=== PATIENT | male | born 1960 | race African-American/Black ===

== ENCOUNTER 2019-02-11 23:25 | Inpatient (IN) ==
[2019-02-11 23:17] LABS: BASO# 0.01 X1000 (0.0-0.2); BASO% 0.1 % (0.0-0.8); HEMATOCRIT 47.5 % (42.0-52.0); HEMOGLOBIN 16.6 g/dL (14.0-18.0); IMM GRAN# 0.18 X1000 (0.0-0.04); IMM GRAN% 1.5 % (0.0-0.5); LYMPH# 1.16 X1000 (1.2-3.4); LYMPH% 9.5 % (20.5-51.1); MCHC 34.9 g/dL (33-37); MCV 82.9 FL (81-99); MONO# 1.77 X1000 (0.11-0.59); MONO% 14.4 % (1.7-9.3); MPV 12.5 FL (7.4-10.4); NEUT# 9.15 X1000 (1.4-6.5); NEUT% 74.5 % (42.2-75.2); PLT 260 X1000 (130-400); RBC 5.73 XMIL (4.7-6.1); RDW 12.8 % (11.5-14.5); WBC 12.27 X1000 (4.8-10.8)
--- NOTE | 2019-02-11 23:23 | PROVIDER DOCUMENTATION ---
HPI-General Adult - General Chief Complaint: Altered Mental Status Stated Complaint: fall Time Seen by Provider: 02/11/19 23:45 Source: EMS Allergies/Adverse Reactions: Patient Allergies Allergy/AdvReac Type Severity Reaction Status Date / Time No Known Allergies Allergy Verified 01/02/13 11:00 Home Medications: Home Medication List Medication Instructions Recorded Confirmed Last Taken Type Sulfamethoxazole/Trimethoprim 1 each PO BID #20 tablet 01/02/13 Unknown Rx [Bactrim Ds Tablet] - History of Present Illness -Gen Adult Nature of Presenting Problems: Patient is a 58 year old black male, found on the floor in his bathroom tonight with altered mentation without evidence of injury with rapid respirations,low blood pressure, and fruity odor. Review of Systems - Adult - REVIEW OF SYSTEMS - ADULT ROS:: unobtainable per condition Constitutional: reports: see HPI Past History - Adult - PAST MEDICAL HISTORY-ADULT Review of Records: reports: Old Records Reviewed, Nursing Assessment Review, Medications Reviewed, Social history reviewed & non-contributory. Physical Exam-General - PHYSICAL EXAM-ADULT Initial Vital Signs Reviewed: Yes - CONSTITUTIONAL General Appearance: lethargic, other (slow mentation, follows commands slowly, GCS=13, dry mucous membranes with rapid respirations) - EYES Eyes: other (clear) - HEAD, EARS, NOSE, MOUTH & THROAT HENMT: other (dry membranes) - NECK Neck: supple - RESPIRATORY Respiratory: lungs clear - CARDIOVASCULAR Cardiovascular: regular rate, rhythm - GASTROINTESTINAL (ABDOMEN) Abdominal Exam: normal bowel sounds, non tender, soft - MUSCULOSKELETAL Back Exam: normal inspection, no CVA tenderness Extremity: non-tender, other (no deformities) Peripheral Pulses: radial (R): 1+, radial (L): 1+ - SKIN Integumentary: warm/dry, other (poor skin turgor). negative: normal turgor - NEUROLOGIC Neurologic: other (nonfocal, uncooperative to exam) Progress - PLAN OF CARE/RESULTS Progress/Plan/Lab Results: Laboratory Results - last 24 hr 02/11/19 02/11/19 23:09 23:10 WBC 12.27 H RBC 5.73 Hgb 16.6 Hct 47.5 MCV 82.9 MCH 29.0 MCHC 34.9 RDW Std Deviation 12.8 Plt Count 260 MPV 12.5 H Immature Gran % (Auto) 1.5 H Neut % (Auto) 74.5 Lymph % (Auto) 9.5 L [place] % (Auto) 14.4 H Eos % (Auto) 0.0 Baso % (Auto) 0.1 Immature Gran # (Auto) 0.18 H Neut # (Auto) 9.15 H Lymph # (Auto) 1.16 L [place] # (Auto) 1.77 H Eos # (Auto) 0.00 Baso # (Auto) 0.01 POC Glucose 500 H Orders Category Date Time Status Core Temperature ORDERED Care 02/11/19 23:04 Active FSBS/Accucheck Result NOW Care 02/11/19 23:05 Active Vogel Cath Insertion ORDERED Care 02/11/19 23:02 Active Vogel Cath Insertion ORDERED Care 02/11/19 23:06 Active IV Insertion ORDERED Care 02/11/19 23:06 Active Intake and Output-Strict ORDERED Care 02/11/19 23:02 Active Intake and Output-Strict ORDERED Care 02/11/19 23:06 Active Notify MD/PA/RUBBER CHEMIST for exam NOW Care 02/11/19 23:02 Active Notify MD/PA/RUBBER CHEMIST for exam NOW Care 02/11/19 23:06 Active Repeat Vital Signs .Blood Pressure Care 02/11/19 23:02 Active Repeat Vital Signs .Blood Pressure Care 02/11/19 23:06 Active Repeat Vital Signs .Heart Rate Care 02/11/19 23:02 Active Repeat Vital Signs .Heart Rate Care 02/11/19 23:06 Active Repeat Vital Signs .Oxygen Saturation Care 02/11/19 23:02 Active Repeat Vital Signs .Oxygen Saturation Care 02/11/19 23:06 Active Repeat Vital Signs .Respiratory Rate Care 02/11/19 23:02 Active Repeat Vital Signs .Respiratory Rate Care 02/11/19 23:06 Active Repeat Vital Signs .Temp Care 02/11/19 23:02 Active Repeat Vital Signs .Temp Care 02/11/19 23:06 Active CHEST-PORTABLE [RAD] Stat Exams 02/11/19 23:04 Ordered ABG [RESP] Routine Lab 02/11/19 23:03 Ordered BLOOD CULTURE [BLDCUL] Stat Lab 02/11/19 23:04 Uncollected CBC WITH ELECTRONIC DIFF [HEME] Stat Lab 02/11/19 23:09 Completed CMP [COMPREHENSIVE METABOLIC PANEL] [CHEM] Stat Lab 02/11/19 23:03 Uncollected LACTATE, PLASMA [CHEM] Timed Lab 02/11/19 23:02 Uncollected LACTATE, PLASMA [CHEM] Timed Lab 02/11/19 23:06 Uncollected PROTIME WITH INR [COAG] Stat Lab 02/11/19 23:05 Uncollected PTT [COAG] Stat Lab 02/11/19 23:[address] W/POSS RFLX CULT [URINALYSIS] Stat Lab 02/11/19 23:03 Uncollected URINE DRUG SCREEN PL Stat Lab 02/11/19 23:05 Uncollected 0.9% Sodium Chloride Inj [Ns] 1,000 ml Med 02/11/19 23:02 Discontinued IV As Directed mls/hr 0.9% Sodium Chloride Inj [Ns] 1,000 ml Med 02/11/19 23:06 Discontinued IV As Directed mls/hr 0.9% Sodium Chloride Inj [Ns] 2,000 ml Med 02/11/19 23:05 Discontinued .ROUTE As directed 0.9% Sodium Chloride Inj [Ns] 500 ml Med 02/11/19 23:02 Active IV 999 mls/hr 0.9% Sodium Chloride Inj [Ns] 500 ml Med 02/11/19 23:06 Active IV 999 mls/hr Dextrose 5%-0.45% NaCl Inj [D5 1/2 Ns] 250 ml Med 02/11/19 23:15 Active Norepinephrine [Levophed] 8 mg IV As Directed mls/hr Dextrose 5%-0.45% NaCl Inj [D5 1/2 Ns] 250 ml Med 02/11/19 23:15 Discontinued Norepinephrine [Levophed] 8 mg IV As Directed mls/hr Dextrose 5%-Water Inj [D5w] 250 ml Med 02/11/19 23:15 Stop Req Epinephrine 8 mg IV As Directed mls/hr Piperacillin/Tazobactam [Zosyn] 3.375 gm Med 02/11/19 23:03 Active 0.9% Sodium Chloride Inj [Ns] 50 ml IV NOW Vancomycin 1 gm/Ns Med 02/11/19 23:02 Active 1 gm in 250 ml IV NOW Result Diagrams: 02/11/19 23:09 02/11/19 23:09 - CONSULTS/PCP/HOSPITALIST Notification #1 *Consult/PCP/Hospitalist*: Dr. Burks hospitalist Time Discussed: 00:45 Reason/Comments: admit to [facility], we have no ICU beds Consult Disposition: Admit #2 Consult: Dr. Neal hospitalist at [facility] Time Discussed: 00:50 Consult Disposition: Admit Departure - Departure Date of Disposition Decision: 02/12/19 Time of Disposition Decision: 00:55 DIAGNOSIS: Diabetic ketoacidosis Qualifiers: Diabetes mellitus type: other specified (including FRANCISCO) Diabetes mellitus complication detail: without coma Qualified Code(s): E13.10 - Other specified diabetes mellitus with ketoacidosis without coma Hypotension Qualifiers: Hypotension type: unspecified hypotension type Qualified Code(s): I95.9 - Hypotension, unspecified Hypothermia Qualifiers: Encounter type: initial encounter Qualified Code(s): T68.XXXA - Hypothermia, initial encounter Disposition: ADMITTED INPATIENT 09 Certified Medical Emergency: Emergent Condition: Critical Referrals and Follow-Ups: None,PCP [Primary Care Provider] - - Critical Care Note This patient required my direct & personal management of CC.: Yes Total Time (mins): 85 Critical Care Statement: This patient required my direct personal management to treat or rule out processes, the absence of which, could potentiallly result in sudden, clinically significant life or limb threatening deterioration. Attestation - Physician/ YOSI Attestation Patient care was provided by Advanced Practice Provider:: No The physician spent face to face time with patient:: Yes Advanced Practice Provider documentation review:: Supervising physician onsite and consulted in the evaluation and care of this patient. The physician did have a face to face encounter with the patient.
[~2019-02-11 23:25] MED LIST: EPINEPHRINE 8 MG in D5W 250 ML IV SCH; LEVOPHED 8 MG in D5 1/2 NS 250 ML IV SCH; NS 1,000 ML IV ONE; NS 2,000 ML ONE; NS 500 ML IV ONE; VANCOMYCIN 1 GM/NS 1 GM/250 ML IVPB IV ONE; ZOSYN 3.375 GM in NS 50 ML IV ONE
[2019-02-11 23:39] LABS: INR 1.3; PROTIME 16.8 Seconds (11.0-16.0)
[2019-02-11 23:39] LABS: BE -26.7 mmoll (-3.0-3.0); BLOOD TYPE ARTERIAL; HCO3-(ACT) 4.1 mmoll (20.0-26.0); METHB 1.4 % (0.0-1.5); O2(CT) 19.4 mL/dL (15.0-23.0); O2HB 95.7 % (95.0-99.0); PO2(98.6) 135 mmHg (60-100); SAMPLE BLOOD; SAO2 99.6 % (95.0-100.0); THB 14.3 g/dL (11.5-17.4)
[2019-02-11 23:44] LABS: ALLEN TEST YES; MODALITY ROOM AIR; PCO2(98.6) 15 mmHg (35-45); pH(98.6) 6.97 (7.35-7.45)
[2019-02-11 23:48] LABS: ALBUMIN 3.9 g/dL (3.5-5.0); CALCIUM 8.2 mg/dL (8.8-10.2); CREATININE 3.4 mg/dL (0.7-1.2); POTASSIUM 5.7 mmol/L (3.5-5.1); TOTAL BILIRUBIN 0.3 mg/dL (0.20-1.00)
[2019-02-11] MEDS ORDERED: LEVOPHED ONE (23:57)
[2019-02-11] MEDS ORDERED: HUMULIN R IV ONE (23:57)
[2019-02-12] LABS: BILIRUBIN URINE NEGATIVE (NEGATIVE); BLOOD URINE 4+ (NEGATIVE); CLARITY CLEAR (CLEAR); COLOR YELLOW; KETONE URINE 3+(Large) mg/dL (NEGATIVE); LEUKOCYTES URINE NEGATIVE (NEGATIVE); NITRITE URINE NEGATIVE (NEGATIVE); PROTEIN URINE 1+(30 mg/dL) mg/dL (NEGATIVE); SP GRAVITY URINE 1.015; UR AMPHETAMINES QUAL NONE DETECTED (NONE DETECT); UR BARBITUATES QUAL NONE DETECTED (NONE DETECT); UR BENZODIAZEPIN QUAL NONE DETECTED (NONE DETECT); UR CANNABINOIDS QUAL NONE DETECTED (NONE DETECT); UR COCAINE QUAL NONE DETECTED (NONE DETECT); UR METHADONE QUAL NONE DETECTED (NONE DETECT); UR METHAMPHETAMINE QUAL NONE DETECTED (NONE DETECT); UR OPIATES QUAL NONE DETECTED (NONE DETECT); UR OXYCODONE QUAL NONE DETECTED (NONE DETECT); UR PCP QUAL NONE DETECTED (NONE DETECT); UR PROPOXYPHENE QUAL NONE DETECTED (NONE DETECT); UR TCA QUAL NONE DETECTED (NONE DETECT); URINE BACTERIA NEGATIVE /HFP; URINE EPITHELIAL CELLS <10 /HPF (<10); URINE RBC <10 /HPF (<10); URINE SOURCE CATH; URINE WBC <10 /HPF (<10); UROBILINOGEN URINE NORMAL
[2019-02-12] MEDS ORDERED: HUMULIN R (PARKWAY) ONE (00:11)
[2019-02-12] MEDS ORDERED: HUMULIN R IV ONE ×2 (00:30→04:00)
[2019-02-12] MEDS ORDERED: NS 100 ML IV ONE (00:33)
[2019-02-12] MEDS ORDERED: ZOFRAN IV PRN ×2 (01:29→04:00)
[2019-02-12] MEDS ORDERED: LEVOPHED 8 MG in D5 1/2 NS 250 ML IV SCH ×2 (04:00→08:45)
[2019-02-12] MEDS ORDERED: D50W SYRINGE IV PRN (04:00)
[2019-02-12] MEDS ORDERED: SODIUM PHOSPHATE 30 MMOL in D5W 250 ML IV PRN (04:00)
[2019-02-12] MEDS ORDERED: NS 1,000 ML IV SCH (04:00)
[2019-02-12] MEDS ORDERED: TYLENOL PO PRN (04:00)
[2019-02-12] MEDS ORDERED: D5 NS 1,000 ML IV SCH (04:00)
[2019-02-12] MEDS ORDERED: POTASSIUM CHLORIDE 40 MEQ/SWI 40 MEQ/100 ML IVPB IV PRN (04:00)
[2019-02-12] MEDS ORDERED: MAGNESIUM SULFATE 2 GM/S.W.I. 2 GM/50 ML IVPB IV PRN (04:00)
[2019-02-12] MEDS ORDERED: TYLENOL PR PRN (04:00)
[2019-02-12] MEDS ORDERED: SODIUM BICARBONATE 8.4% 50 MEQ in D5W 250 ML IV PRN (04:00)
[2019-02-12] MEDS ORDERED: SODIUM BICARBONATE 8.4% 100 MEQ in D5W 500 ML IV PRN (04:00)
[2019-02-12] MEDS: NS 1,000 ML IV SCH ×2 (04:04→05:03)
[2019-02-12] MEDS: HUMULIN R 100 UNIT in NS 99 ML IV SCH (04:08)
[2019-02-12 04:38] LABS: ALLEN TEST YES; BE -24.1 mmoll (-3.0-3.0); BLOOD TYPE ARTERIAL; HCO3-(ACT) 6.1 mmoll (20.0-26.0); METHB 1.3 % (0.0-1.5); O2(CT) 23.8 mL/dL (15.0-23.0); O2HB 96.6 % (95.0-99.0); PO2(98.6) 154 mmHg (60-100); SAMPLE BLOOD; SAO2 99.6 % (95.0-100.0); THB 17.4 g/dL (11.5-17.4)
[2019-02-12 04:39] LABS: MODALITY ROOM AIR
[2019-02-12 04:40] LABS: PCO2(98.6) 16 mmHg (35-45); pH(98.6) 7.05 (7.35-7.45)
[2019-02-12 04:52] LABS: BASO# 0.01 X1000 (0.0-0.2); BASO% 0.1 % (0.0-0.8); HEMATOCRIT 46.3 % (42.0-52.0); IMM GRAN# 0.07 X1000 (0.0-0.04); IMM GRAN% 0.6 % (0.0-0.5); LYMPH# 1.44 X1000 (1.2-3.4); LYMPH% 12.9 % (20.5-51.1); MCHC 36.7 g/dL (33-37); MCV 81.8 FL (81-99); MONO# 0.97 X1000 (0.11-0.59); MONO% 8.7 % (1.7-9.3); MPV 12.1 FL (7.4-10.4); NEUT# 8.71 X1000 (1.4-6.5); NEUT% 77.7 % (42.2-75.2); PLT 226 X1000 (130-400); RBC 5.66 XMIL (4.7-6.1); RDW 12.5 % (11.5-14.5)
[2019-02-12 05:05] LABS: HEMOGLOBIN A1C 10.9 % (4.8-6.0)
[2019-02-12 05:08] LABS: CALCIUM 8.2 mg/dL (8.8-10.2); CREATININE 3.1 mg/dL (0.7-1.2); MAGNESIUM 3.4 mg/dL (1.5-2.7); PHOSPHORUS 4.9 mg/dL (2.7-4.5)
[2019-02-12] MEDS: PROTONIX IV SCH (06:01)
[2019-02-12] MEDS: SODIUM CHLORIDE 0.9% INJ SCH (06:01)
[2019-02-12] MEDS: POTASSIUM CHLORIDE 20 MEQ/SWI 20 MEQ/100 ML IVPB IV PRN ×4 (06:02→22:50)
--- NOTE | 2019-02-12 06:54 | Diag Imaging Result Doc PS360 ---
CHEST-PORTABLE - 02/11/2019 INDICATION: AMS COMPARISON: None FINDINGS: The lungs are normally expanded and clear. Heart size and mediastinal contours are normal. No pneumothorax or pleural effusion. IMPRESSION: Negative exam. Electronically signed by Denzel Champion 02/12/2019 6:52 AM
--- NOTE | 2019-02-12 07:15 | Diag Imaging Result Doc PS360 ---
EXAM: CT HEAD W/O CONTRAST 02/12/2019 HISTORY: AMS TECHNIQUE: This exam was performed using automated exposure control, adjustment of mA or kV according to patient size, and/or use of iterative reconstruction technique. COMMENT: There are no previous studies available for comparison. Both maxillary sinuses are opacified and apparently hyperostotic. This may be chronic. There is opacification of multiple ethmoid air cells and both frontal sinuses again there appears to be some thickening of the nazario of the frontal sinus. There is no evidence of mass effect, bleed, or abnormal extra-axial fluid collection intracranially. The middle ear cavities are pneumatized. The mastoids are clear. The calvarium is intact. IMPRESSION: No evidence of acute intracranial disease. Probable chronic maxillary, ethmoid and frontal sinusitis. Electronically signed by Pedro Villarreal 02/12/2019 7:13 AM
[2019-02-12] MEDS ORDERED: SODIUM BICARBONATE 8.4% IV ONE (08:34)
[2019-02-12] MEDS ORDERED: 1/2 NS 1,000 ML IV SCH (08:45)
[2019-02-12] MEDS: D5 1/2 NS 1,000 ML IV SCH ×4 (08:55→19:03)
[2019-02-12] MEDS ORDERED: NS 500 ML IV ONE (09:02)
[2019-02-12] MEDS: ZOSYN 2.25 GM in NS 50 ML IV SCH ×3 (09:22→21:05)
[2019-02-12 09:30] LABS: ALLEN TEST YES; BE -16.7 mmoll (-3.0-3.0); BLOOD TYPE ARTERIAL; HCO3-(ACT) 11.8 mmoll (20.0-26.0); PCO2(98.6) 22 mmHg (35-45); PO2(98.6) 83 mmHg (60-100); SAMPLE BLOOD; pH(98.6) 7.22 (7.35-7.45)
[2019-02-12 09:32] LABS: MODALITY ROOM AIR
--- NOTE | 2019-02-12 10:00 | PROGRESS NOTE ---
DATE: 02/12/2019 SUBJECTIVE: The patient has been transferred from [facility] due to diabetes ketoacidosis. He received IV fluids in the emergency department. He received a dose of vancomycin and Zosyn as well. He was placed on insulin drip and it looks like his blood pressure was in the 80s. He has been placed on pressors as well. Right now I do not have any source of infection. As per the patient he does not know if he has diabetes. No history of diabetes on this patient, I do not have any family members at the bedside at this moment and this patient is not able to talk too much, but he was able to say his name. He is really hard to understand what he says. He is following commands on and off. He is able to open his mouth and move the fingers and toes. He is extremely weak. Upon admission, his pH was 6.97 with a bicarb level of 4.1. The 2nd ABG showed a pH of 7.05 with a bicarb level of 6.1. I will give him a dose of bicarbonate stat, and I will continue following the diabetic ketoacidosis protocol. He will receive maintenance doses of IV fluids at 125 mL/hr. Chest x-ray did not show any acute abnormality. CT scan of the head showed possible maxillary, ethmoid and frontal sinusitis, which can be chronic. Because of that I will put this patient on antibiotics. Like I said he already received 1 dose of vancomycin and Zosyn. OBJECTIVE: Vital Signs: Pulse 99, respiratory rate 22, blood pressure 94/60, oxygen saturation 99 on room air, temperature 97.8 degrees, but initially his temperature apparently was 92.3. HEENT: Head normocephalic no trauma PERRLA. Neck: Supple. No JVD. No masses. Central trachea. Chest: Clear to auscultation. No wheezing. No rales. Abdomen: Soft, nontender, nondistended. No hepatosplenomegaly. Extremities: No edema, no clubbing, no cyanosis. Neurological: The patient is sleepy, but arousable. He tries to talk but it is really hard to understand what he says. He is able to say his name and he is following commands. He opened his mouth. He showed me 2 fingers and moved his toes upon command. Also he was able to bend his both knees. I do not see any skin infection at this moment and he is not complaining of pain. He has been placed on restraints because he has been pulling the lines and the Vogel catheter LABORATORY: WBC 11.2, hemoglobin 17, hematocrit 46.3, platelets 226,000. pH 7.05, pCO2 16, PO2 154, bicarbonate 6.1. Lactate level is 2.4. Sodium 136, potassium 4, chloride 105, bicarbonate 5, BUN 72, creatinine 3.1, glucose 322, calcium 8.2, magnesium 3.4. That lab work was done at around 4 a.m., pending new lab work at this moment. ASSESSMENT AND PLAN: 1. Diabetes ketoacidosis. As per the patient, he did not have any history of diabetes, but his hemoglobin A1c is 10.9. We are following the diabetic ketoacidosis protocol. We are replacing the electrolytes. Sodium looks better, but that was likely secondary to pseudohyponatremia. Glucose level more stable. We will continue monitoring the laboratory every 4 hours. We will continue with IV fluids as well, it looks like he is making good amount of urine but he has a kidney injury which at this point I do not know if this is new or old because I do not have any previous laboratories. 2. Severe metabolic acidosis, severe anion gap metabolic acidosis, likely secondary to diabetic ketoacidosis. Continue with diabetic ketoacidosis protocol. 3. New onset of diabetes. Blood sugar better controlled compared with admission. Continue with the with the insulin drip, will monitor. 4. Electrolyte imbalance, will replace and we will follow the diabetic ketoacidosis protocol for this. He has been receiving potassium since the potassium level is around 4. 5. Pseudohyponatremia, likely secondary to hyperglycemia. New lab work showed a sodium level is 136. 6. Altered mental status. Apparently he has been confused on and off and he has been pulling out his IV lines and Vogel catheter. He seems to be doing a little bit better. He is not able to talk completely but he was able to say his name. He is following commands, we will monitor this closely. 7. Kidney injury, acute versus chronic. We will continue with IV fluids. Likely this is pretty pre renal, will continue to monitor. 8. Hypotension, we will continue with vasopressors as needed. 9. Mild leukocytosis with a CT scan that showed possible chronic sinusitis, I have placed this patient on antibiotics. Antibiotics will be renally dosed. 10. This patient is full code, full code. 11. We will continue with the same management. We are replacing his electrolytes and he is getting fluids and insulin drip. Also he has been placed on pressors due to his high hypotension. He received already IV fluids in the emergency department. He seems to be a little bit dehydrated at this moment, so I will push which 500 mL of IV fluid. His urine output is looks stable. I will continue with the same management. I do not have any family members at the bedside. I do not have any previous history. cc: Joseph Bhardwaj MD
[2019-02-12 10:10] LABS: CALCIUM 8.8 mg/dL (8.8-10.2); CREATININE 2.8 mg/dL (0.7-1.2); MAGNESIUM 3.2 mg/dL (1.5-2.7); POTASSIUM 4.1 mmol/L (3.5-5.1)
--- NOTE | 2019-02-12 10:17 | EKG Report ---
Test Performed on : 02/12/2019 00:19:33 AM Test Reason : pain Blood Pressure : / mmHG Vent. Rate : 072 BPM Atrial Rate : 072 BPM P-R Int : 156 ms QRS Dur : 088 ms QT Int : 448 ms P-R-T Axes : 058 054 045 degrees QTc Int : 490 ms Normal sinus rhythm. Prolonged QT Abnormal ECG No previous ECGs available Unconfirmed Result
[2019-02-12 13:11] LABS: CALCIUM 8.5 mg/dL (8.8-10.2); CREATININE 2.6 mg/dL (0.7-1.2); MAGNESIUM 2.9 mg/dL (1.5-2.7); POTASSIUM 4.4 mmol/L (3.5-5.1)
[2019-02-12 13:25] LABS: ALLEN TEST YES; BE -15.2 mmoll (-3.0-3.0); BLOOD TYPE ARTERIAL; METHB 1.5 % (0.0-1.5); O2(CT) 21.1 mL/dL (15.0-23.0); O2HB 94.8 % (95.0-99.0); PCO2(98.6) 20 mmHg (35-45); PO2(98.6) 79 mmHg (60-100); SAMPLE BLOOD; SAO2 97.8 % (95.0-100.0); THB 15.8 g/dL (11.5-17.4); pH(98.6) 7.27 (7.35-7.45)
[2019-02-12 13:27] LABS: MODALITY ROOM AIR
--- NOTE | 2019-02-12 15:55 | HISTORY AND PHYSICAL ---
PRIMARY CARE PROVIDER: None. HISTORY: Mr. Swann is a 58-year-old male who was brought to [facility] this morning late yesterday evening on February 11 at 23:25. His mother who he lives with reports that she heard a thud and went to check on him and found him on the bathroom floor. According to his mother the patient has no known medical problems though has not seen a doctor in over 30 years. She states that for the past few days that he has not felt well. He has been very tired and weak. She reports she also noticed he was having some difficulty with ambulation and was using his sister's cane for assistance and was still having quite a bit of trouble ambulating. He has reported nausea, abdominal pain. His mother reports that she thinks that he has some problems with frequent episodes of diarrhea. She denied him having any known fever body aches or chills or reporting any dysuria though she has stated that he has had ongoing problems with sinus congestion and drainage for over a year now. She has reported him having an occasional cough. Upon evaluation in the ER noted to be hyperglycemic with an initial serum glucose of 947. Other laboratory findings did reveal the patient was in DKA with a serum bicarb of 6, anion gap of 34. He did have large ketones in his urine. Arterial blood gases showed a pH of 6.97, pCO2 15. He did have some minor electrolyte abnormalities as well. The patient also did appear to be very dehydrated. He did have dry mucous membranes and was tachycardic and hypotensive. The patient will be admitted tin patient admission to ICU at [facility] for further treatment and evaluation. PAST MEDICAL HISTORY: The patient's mother reports that he has no known past medical history though she states that he has not seen a doctor in 30 years. PAST SURGICAL HISTORY: The patient's mother denies any known past surgical history. SOCIAL HISTORY: The patient is unemployed. He does live with his mother at this time. The patient did previously smoke and occasionally drinks though his mother states that she does not buy him these things anymore and if he does not have means to obtain he does not use them. There is no known history of illicit drug abuse. The patient's mother did state that she thought that the patient may have some problems with depression. He is not been himself since his sister from colon cancer. She reports he has been having periods of agitation, short temper and sometimes talks to himself or things that are there are or things or people that are not there though there is no previous known history of psychiatric illness. FAMILY HISTORY: Positive for his mother having diabetes and renal disease. His sister has a history of colon cancer for which she secondary to this. ALLERGIES: Patient has no known allergies. MEDICATION: The patient has no known home medication prescriptions. DIAGNOSTIC DATA: White blood cell count 12,270, hemoglobin 15.5, hematocrit 47.7, platelet count 260,000. PT 16.8, INR 1.3, PTT 26. Sodium 123. Potassium 5.7. Chloride 83. Serum bicarb of 6. Anion gap 34. BUN 67, creatinine 3.4, GFR 19, glucose 947. Calcium 8.2, phosphorus 4.9, magnesium 4.2, liver function tests within normal limits except for alkaline phosphatase is slightly elevated at 124. Troponin is less than 0.01. His lactate 1.7. Arterial blood gases were obtained on room air pH was 6.97, pCO2 was 15, PO2 135, HCO3 is 4.1, base excess is negative 26.7 with O2 saturation of 99.6. Urinalysis was obtained via catheter was positive for protein, large ketones and 3+ glucose. It was negative for nitrites, white blood cells, or bacteria. Urine drug screen was negative. Acetaminophen level is less than 1.2. EKG showed normal sinus rhythm with a prolonged QT at a rate of 72 and a QTC of 490. Head CT showed no evidence of intracranial disease. Probable chronic maxillary, ethmoid and frontal sinusitis. Chest x-ray showed no acute disease. This is per Radiology. PHYSICAL EXAMINATION: VITAL SIGNS: Temperature 97 degrees, heart rate 95, respirations 26, blood pressure is 94/50. Oxygen saturation is 99% on room air. GENERAL: Mr. Swann is a 58-year-old male. He is resting in the ICU bed. Patient was slightly restless upon examination. He is [*] He is only oriented to person and place. He is able to move all extremities. NEUROLOGIC: Patient is alert and oriented to person and placed only. HEENT: Pupils are equal, round, were 3 mm to 4 mm bilaterally. Oral mucosa is dry. Oropharynx is clear. NECK: Supple, trachea midline. CARDIOVASCULAR: S1-S2 present. No murmurs, rubs or gallops appreciated. There is a tachycardic rate which is regular. PULMONARY: Symmetrical chest expansion bilaterally. Lung sounds are clear to auscultation bilateral lung blas. ABDOMEN: Soft, doesn't appear to be distended. The patient did not have any facial grimacing regarding or localization to pain on palpation. EXTREMITIES: No cyanosis, clubbing, or edema noted. Pulse, motor and sensory is intact in all extremities. Radial pulses and pedal pules 2+ bilaterally. INTEGUMENTARY: Patient's skin is pink, warm and dry. NEUROLOGIC: Patient is alert and oriented to person and place only. He is able to move all extremities though at this time due to his current mentation and condition his neurological exam is limited. ASSESSMENT: 1. Diabetic ketoacidosis. The patient has been placed on the diabetic ketoacidosis protocol. We will continue this. We have placed on an insulin drip, provided 3 L normal saline bolus and is on continuous normal saline infusion. We will closely monitor his electrolytes as well as his arterial blood gases. He is in ICU for close monitoring. He is on continuous pulse oximetry and cardiac telemetry. Continue to follow. 2. New onset diabetes mellitus. Once his condition has improved we will placed a dietary consult. We have placed consult with real estate services administrator and case management for assistance with obtaining diabetic medications and finding a primary care provider. 3. Fluid volume depletion. The patient did receive 3 L normal saline bolus. We will continue with continuous normal saline infusion of 120 mL per hour. We will closely monitor his fluid volume status with strict intake and output. 4. Hypotension. This is likely secondary to fluid volume depletion. We will continue to fluid resuscitate the patient. If this does not improve and the patient's blood pressure remains low we may likely have to place him on a pressor. We will continue to follow. 5. Acute kidney injury. Likely a combination of fluid volume depletion and hypoperfusion secondary to hypertension. We will continue to monitor this closely. We do not have any previous labs to compare his previous renal function to at this time. We will avoid nephrotoxic medications and rarely dose medicines, as necessary. 6. Deep venous thrombosis prophylaxis. Will be provided with SCDs. 7. Patient has been placed in ICU. He will have frequent vital signs and neuro checks. He will be NPO. The patient's mother also mentioned that he has been going to the bathroom a lot. We are unsure if he had diarrhea or not. She also reports that she found some blood splatters by the toilet. Given this as well as lack of information about the patient's history of present illness we have gone ahead and ordered stool studies including Hemoccult stool. We are awaiting those results at the time. 8. Also given patient's mother report of him having possible depression with increased agitation, mood swings, short temper as well as he has possibly been talking to himself or someone that was not there. The patient may benefit from psychiatric evaluation if these symptoms are still present once his mentation has improved. We will continue to follow closely. Mother denied him having any history of suicide attempt, self harm in the past. 9. Other orders and recommendations pending hospital course, diagnostic studies and additional evaluation. Dictated by CARLOS Wray for Antonio Neal MD cc: Antonio Neal MD
[2019-02-12 17:42] LABS: CALCIUM 8.3 mg/dL (8.8-10.2); CREATININE 2.6 mg/dL (0.7-1.2); PHOSPHORUS 1.5 mg/dL (2.7-4.5); POTASSIUM 4.3 mmol/L (3.5-5.1)
[2019-02-12 18:04] LABS: ALLEN TEST YES; BE -14.2 mmoll (-3.0-3.0); BLOOD TYPE ARTERIAL; HCO3-(ACT) 13.8 mmoll (20.0-26.0); METHB 1.5 % (0.0-1.5); O2(CT) 20.2 mL/dL (15.0-23.0); O2HB 96.1 % (95.0-99.0); PCO2(98.6) 20 mmHg (35-45); PO2(98.6) 88 mmHg (60-100); SAMPLE BLOOD; SAO2 99.6 % (95.0-100.0); THB 14.9 g/dL (11.5-17.4)
[2019-02-12 18:08] LABS: MODALITY ROOM AIR
[2019-02-12 21:19] LABS: CALCIUM 8.3 mg/dL (8.8-10.2); CREATININE 2.3 mg/dL (0.7-1.2); PHOSPHORUS 1.4 mg/dL (2.7-4.5); POTASSIUM 4.5 mmol/L (3.5-5.1)
[2019-02-12 21:21] LABS: ALLEN TEST YES; BE -12.9 mmoll (-3.0-3.0); BLOOD TYPE ARTERIAL; HCO3-(ACT) 14.8 mmoll (20.0-26.0); METHB 1.6 % (0.0-1.5); MODALITY ROOM AIR; O2(CT) 20.2 mL/dL (15.0-23.0); PCO2(98.6) 20 mmHg (35-45); PO2(98.6) 83 mmHg (60-100); SAMPLE BLOOD; SAO2 98.3 % (95.0-100.0); THB 15.1 g/dL (11.5-17.4); pH(98.6) 7.33 (7.35-7.45)
[2019-02-13] MEDS: D5 1/2 NS 1,000 ML IV SCH ×2 (00:36→08:53)
[2019-02-13 01:31] LABS: ALLEN TEST YES; BLOOD TYPE ARTERIAL; HCO3-(ACT) 15.5 mmoll (20.0-26.0); METHB 1.3 % (0.0-1.5); O2(CT) 20.9 mL/dL (15.0-23.0); O2HB 95.4 % (95.0-99.0); PCO2(98.6) 21 mmHg (35-45); PO2(98.6) 81 mmHg (60-100); SAMPLE BLOOD; THB 15.6 g/dL (11.5-17.4); pH(98.6) 7.34 (7.35-7.45)
[2019-02-13 01:32] LABS: MODALITY ROOM AIR
[2019-02-13 01:50] LABS: CALCIUM 8.9 mg/dL (8.8-10.2); CREATININE 2.2 mg/dL (0.7-1.2); MAGNESIUM 3.1 mg/dL (1.5-2.7); PHOSPHORUS 1.7 mg/dL (2.7-4.5); POTASSIUM 4.2 mmol/L (3.5-5.1)
[2019-02-13] MEDS: HUMULIN R 100 UNIT in NS 99 ML IV SCH ×2 (02:27→22:58)
[2019-02-13] MEDS: POTASSIUM CHLORIDE 20 MEQ/SWI 20 MEQ/100 ML IVPB IV PRN ×6 (02:27→22:59)
[2019-02-13] MEDS: ZOSYN 2.25 GM in NS 50 ML IV SCH ×4 (02:28→20:04)
[2019-02-13 04:17] LABS: ALLEN TEST YES; BE -12.1 mmoll (-3.0-3.0); BLOOD TYPE ARTERIAL; HCO3-(ACT) 15.4 mmoll (20.0-26.0); METHB 1.4 % (0.0-1.5); O2(CT) 19.7 mL/dL (15.0-23.0); O2HB 95.2 % (95.0-99.0); PCO2(98.6) 21 mmHg (35-45); PO2(98.6) 81 mmHg (60-100); SAMPLE BLOOD; SAO2 98.1 % (95.0-100.0); THB 14.7 g/dL (11.5-17.4); pH(98.6) 7.34 (7.35-7.45)
[2019-02-13 04:22] LABS: MODALITY ROOM AIR
[2019-02-13] MEDS: PROTONIX IV SCH (05:33)
[2019-02-13] MEDS: SODIUM CHLORIDE 0.9% INJ SCH (05:33)
[2019-02-13 05:43] LABS: BASO# 0.01 X1000 (0.0-0.2); BASO% 0.1 % (0.0-0.8); HEMATOCRIT 38.3 % (42.0-52.0); HEMOGLOBIN 13.8 g/dL (14.0-18.0); IMM GRAN# 0.02 X1000 (0.0-0.04); IMM GRAN% 0.2 % (0.0-0.5); LYMPH# 0.74 X1000 (1.2-3.4); LYMPH% 7.6 % (20.5-51.1); MCH 29.4 PG (27-31); MCV 81.5 FL (81-99); MONO# 1.41 X1000 (0.11-0.59); MONO% 14.6 % (1.7-9.3); MPV 12.5 FL (7.4-10.4); NEUT# 7.51 X1000 (1.4-6.5); NEUT% 77.5 % (42.2-75.2); PLT 173 X1000 (130-400); RDW 13.1 % (11.5-14.5); WBC 9.69 X1000 (4.8-10.8)
[2019-02-13 06:10] LABS: CALCIUM 8.7 mg/dL (8.8-10.2); CREATININE 2.1 mg/dL (0.7-1.2); PHOSPHORUS 1.5 mg/dL (2.7-4.5); POTASSIUM 4.2 mmol/L (3.5-5.1)
[2019-02-13 08:26] LABS: ALLEN TEST YES; BE -11.3 mmoll (-3.0-3.0); BLOOD TYPE ARTERIAL; HCO3-(ACT) 16.1 mmoll (20.0-26.0); METHB 1.5 % (0.0-1.5); O2(CT) 18.7 mL/dL (15.0-23.0); O2HB 95.5 % (95.0-99.0); PCO2(98.6) 22 mmHg (35-45); PO2(98.6) 86 mmHg (60-100); SAMPLE BLOOD; SAO2 98.6 % (95.0-100.0); THB 13.9 g/dL (11.5-17.4); pH(98.6) 7.35 (7.35-7.45)
[2019-02-13 08:33] LABS: MODALITY ROOM AIR
[2019-02-13] MEDS: NS 1,000 ML IV SCH ×2 (10:00→18:37)
[2019-02-13 10:35] LABS: CALCIUM 8.5 mg/dL (8.8-10.2); CREATININE 2.1 mg/dL (0.7-1.2); MAGNESIUM 3.3 mg/dL (1.5-2.7); PHOSPHORUS 1.5 mg/dL (2.7-4.5); POTASSIUM 4.1 mmol/L (3.5-5.1)
--- NOTE | 2019-02-13 10:47 | PROGRESS NOTE ---
DATE: 02/13/2019 SUBJECTIVE: This morning Mr. Swann is sleepier. Does follow basic commands, but does not respond to verbal stimuli. No acute issues noted as per nursing staff overnight. OBJECTIVE: Vital Signs: Temperature is 97.6 degrees, heart rate 120, respiratory rate 30, blood pressure 108/80, O2 saturation 97% on room air. General Examination: This is a 58-year-old, male, lying in bed in no acute distress, somewhat confused and sleepy. HEENT: Head is normocephalic, atraumatic. Mucous membranes very dry. Neck: No JVD noted. No carotid bruits. No lymphadenopathy. No thyromegaly. Cardiovascular exam: S1, S2 heard. No murmurs, gallops or rubs. Regular rate and rhythm. Respiratory exam: Clear bilaterally to auscultation. No work of breathing or using accessory muscles. Abdomen: Soft, a little distended, but nontender to palpation. Bowel sounds present. No organomegaly. Extremities: No clubbing, cyanosis or edema. Peripheral pulses present in both legs. Neurological exam: The patient responded to verbal stimuli. The patient is very sleepy. He moves 4 extremities spontaneously. LABORATORY DATA: White cell count 9.69, hemoglobin 13.8, hematocrit 38.3, platelets 173 with ABG that shows pH 7.35 with pCO2 22, PO2 86. BMP shows anion gap 16. Carbon dioxide 11. A1c 10.9. Glucose 248 with phosphorus 1.5 and magnesium 3.0. ASSESSMENT AND PLAN: 1. Diabetic ketoacidosis. Patient continues to be on insulin drip. Considering that his bicarbonate is still low, we will continue with the drip. We are going to change D 5 normal saline to normal saline, and we will continue with 125 mL/hour. Electrolytes have been monitored. Will replenish if needed. 2. New onset diabetes mellitus type 2. Hemoglobin A1c at admission was 10.6. We will continue with current plan outlined above 3. Fluid volume depletion. We will continue with normal saline at 125 mL/hour. 4. Hypertension. Patient has been started on vasopressors yesterday, but had been stopped last night. Since then, blood pressure is in the high 90s and 100s. We will continue to monitor. 5. Acute kidney injury. We do not know exactly this baseline, but from admission his creatinine continues to improve. We will continue to monitor. We will continue to provide intravenous fluids. 6. Metabolic encephalopathy. We will continue to monitor this patient in the intensive care unit. 7. Deep vein thrombosis prophylaxis. Patient is on sequential compression devices. 8. Disposition: We are going to monitor this patient here closely in the intensive care unit. cc: Gurinder Gaona MD
[2019-02-13 13:56] LABS: ALLEN TEST YES; BE -10.9 mmoll (-3.0-3.0); BLOOD TYPE ARTERIAL; HCO3-(ACT) 16.4 mmoll (20.0-26.0); METHB 1.5 % (0.0-1.5); O2(CT) 18.5 mL/dL (15.0-23.0); O2HB 95.6 % (95.0-99.0); PCO2(98.6) 25 mmHg (35-45); PO2(98.6) 92 mmHg (60-100); SAMPLE BLOOD; SAO2 98.6 % (95.0-100.0); THB 13.7 g/dL (11.5-17.4); pH(98.6) 7.33 (7.35-7.45)
[2019-02-13 14:00] LABS: MODALITY ROOM AIR
[2019-02-13 14:15] LABS: CREATININE 1.8 mg/dL (0.7-1.2); MAGNESIUM 3.1 mg/dL (1.5-2.7); PHOSPHORUS 1.8 mg/dL (2.7-4.5); POTASSIUM 3.9 mmol/L (3.5-5.1)
[2019-02-13 15:54] LABS: HEMOGLOBIN 13.6 g/dL (14.0-18.0)
[2019-02-13 18:01] LABS: ALLEN TEST YES; BE -10.4 mmoll (-3.0-3.0); BLOOD TYPE ARTERIAL; HCO3-(ACT) 16.8 mmoll (20.0-26.0); METHB 1.1 % (0.0-1.5); O2(CT) 18.7 mL/dL (15.0-23.0); O2HB 95.4 % (95.0-99.0); PCO2(98.6) 25 mmHg (35-45); PO2(98.6) 81 mmHg (60-100); SAMPLE BLOOD; SAO2 98.5 % (95.0-100.0); THB 13.9 g/dL (11.5-17.4); pH(98.6) 7.34 (7.35-7.45)
[2019-02-13 18:02] LABS: MODALITY ROOM AIR
[2019-02-13 18:32] LABS: MAGNESIUM 3.1 mg/dL (1.5-2.7); PHOSPHORUS 1.7 mg/dL (2.7-4.5); POTASSIUM 3.9 mmol/L (3.5-5.1)
[2019-02-13] MEDS: DULCOLAX PR SCH (20:04)
[2019-02-13 21:01] LABS: ALLEN TEST YES; BE -9.9 mmoll (-3.0-3.0); BLOOD TYPE ARTERIAL; HCO3-(ACT) 17.1 mmoll (20.0-26.0); METHB 1.4 % (0.0-1.5); O2(CT) 24.3 mL/dL (15.0-23.0); O2HB 94.5 % (95.0-99.0); PCO2(98.6) 25 mmHg (35-45); PO2(98.6) 77 mmHg (60-100); SAMPLE BLOOD; SAO2 97.8 % (95.0-100.0); THB 18.3 g/dL (11.5-17.4); pH(98.6) 7.34 (7.35-7.45)
[2019-02-13 21:02] LABS: MODALITY ROOM AIR
[2019-02-13 22:16] LABS: PHOSPHORUS 1.5 mg/dL (2.7-4.5); POTASSIUM 4.2 mmol/L (3.5-5.1)
[2019-02-14 01:36] LABS: ALLEN TEST YES; BE -10.3 mmoll (-3.0-3.0); BLOOD TYPE ARTERIAL; HCO3-(ACT) 16.8 mmoll (20.0-26.0); METHB 1.8 % (0.0-1.5); O2(CT) 20.5 mL/dL (15.0-23.0); O2HB 94.7 % (95.0-99.0); PCO2(98.6) 25 mmHg (35-45); PO2(98.6) 86 mmHg (60-100); SAMPLE BLOOD; SAO2 97.9 % (95.0-100.0); THB 15.4 g/dL (11.5-17.4); pH(98.6) 7.34 (7.35-7.45)
[2019-02-14 01:37] LABS: MODALITY ROOM AIR
[2019-02-14] MEDS: ZOSYN 2.25 GM in NS 50 ML IV SCH ×4 (01:48→20:07)
[2019-02-14] MEDS: NS 1,000 ML IV SCH ×3 (01:48→17:18)
[2019-02-14 02:11] LABS: CALCIUM 8.7 mg/dL (8.8-10.2); CREATININE 1.8 mg/dL (0.7-1.2); MAGNESIUM 2.9 mg/dL (1.5-2.7); PHOSPHORUS 1.3 mg/dL (2.7-4.5); POTASSIUM 4.3 mmol/L (3.5-5.1)
[2019-02-14] MEDS: POTASSIUM CHLORIDE 20 MEQ/SWI 20 MEQ/100 ML IVPB IV PRN ×5 (03:13→22:34)
[2019-02-14 04:26] LABS: ALLEN TEST YES; BE -9.9 mmoll (-3.0-3.0); BLOOD TYPE ARTERIAL; HCO3-(ACT) 17.1 mmoll (20.0-26.0); METHB 1.6 % (0.0-1.5); MODALITY ROOM AIR; O2(CT) 18.4 mL/dL (15.0-23.0); O2HB 95.3 % (95.0-99.0); PCO2(98.6) 24 mmHg (35-45); PO2(98.6) 93 mmHg (60-100); SAMPLE BLOOD; SAO2 98.9 % (95.0-100.0); THB 13.7 g/dL (11.5-17.4); pH(98.6) 7.36 (7.35-7.45)
[2019-02-14] MEDS: PROTONIX IV SCH (05:00)
[2019-02-14 05:05] LABS: BASO# 0.01 X1000 (0.0-0.2); BASO% 0.1 % (0.0-0.8); HEMATOCRIT 36.4 % (42.0-52.0); IMM GRAN# 0.05 X1000 (0.0-0.04); IMM GRAN% 0.5 % (0.0-0.5); LYMPH# 1.41 X1000 (1.2-3.4); LYMPH% 14.2 % (20.5-51.1); MCH 29.7 PG (27-31); MCHC 35.7 g/dL (33-37); MCV 83.1 FL (81-99); MONO# 1.33 X1000 (0.11-0.59); MONO% 13.4 % (1.7-9.3); MPV 12.1 FL (7.4-10.4); NEUT# 7.11 X1000 (1.4-6.5); NEUT% 71.8 % (42.2-75.2); PLT 164 X1000 (130-400); RBC 4.38 XMIL (4.7-6.1); RDW 13.7 % (11.5-14.5); WBC 9.91 X1000 (4.8-10.8)
[2019-02-14 05:27] LABS: CALCIUM 8.6 mg/dL (8.8-10.2); CREATININE 1.8 mg/dL (0.7-1.2); MAGNESIUM 2.9 mg/dL (1.5-2.7); PHOSPHORUS 1.9 mg/dL (2.7-4.5); POTASSIUM 4.7 mmol/L (3.5-5.1)
[2019-02-14 06:39] LABS: CALCIUM 8.6 mg/dL (8.8-10.2); CREATININE 1.8 mg/dL (0.7-1.2); MAGNESIUM 2.9 mg/dL (1.5-2.7); PHOSPHORUS 1.7 mg/dL (2.7-4.5); POTASSIUM 4.6 mmol/L (3.5-5.1)
[2019-02-14] MEDS: DULCOLAX PR SCH ×2 (08:22→20:07)
[2019-02-14] MEDS: D5 1/2 NS 1,000 ML IV SCH ×2 (08:22→16:01)
--- NOTE | 2019-02-14 09:14 | PROGRESS NOTE ---
DATE: 02/14/2019 SUBJECTIVE: Mr Swann is a little bit more awake today although his mental status is fluctuating. Sometimes he is very awake and sometimes he is a little bit confused. He does follow commands. He reports that he is okay, feeling somewhat thirsty but no other complaints noted. OBJECTIVE: Vital Signs: Temperature 98.2 degrees, heart rate 102, respiratory rate 17, blood pressure 125/80, O2 saturation 100% on room air. General: This is a 58-year-old male, lying in bed, in no acute distress. HEENT: Head is normocephalic, atraumatic. Mucous membranes very dry. Pupils are equal, round, reactive to light and accommodation. Neck: No JVD noted. No carotid bruits. No lymphadenopathy. No thyromegaly. Cardiovascular: S1, S2 heard. No murmurs, gallops, or rubs. Regular rate and rhythm. Respiratory: Clear bilaterally to auscultation. No work of breathing or using accessory muscles. Abdomen: Soft, a little bit distended, but there is no tenderness to palpation. Bowel sounds present. No signs of peritoneal irritation. No organomegaly noted. Extremities: No clubbing, cyanosis, or edema. Peripheral pulses present in both legs. Neurological: Patient is a little bit more awake today. Follows commands. Moves 4 extremities spontaneously. LABORATORY DATA: White cell count 9.91, hemoglobin 13.0, hematocrit 36.4, platelets 164,000. ABG shows pH 7.36 with pCO2 24, PO2 93. BMP shows sodium 147, potassium 4.6, chloride 122, bicarbonate 13, anion gap 12, BUN 35, creatinine 1.8. Phosphorus is 1.7. ASSESSMENT AND PLAN: 1. Diabetic ketoacidosis. Patient continues to be on insulin drip. The patient still has severe metabolic acidosis. At this point, we will continue with insulin drip. We will continue to check BMP every 4 hours. The patient is on D5 normal saline. We will continue with same management. 2. New onset diabetes mellitus type 2. Patient is on insulin drip. At this point, hemoglobin A1c 10.6. We will continue with the same management. 3. Fluid volume depletion. We will continue with IV fluids. 4. Hypertension. Blood pressure is now better. The patient is not requiring any vasopressors. We will continue to monitor here in the intensive care unit. 5. Acute kidney injury continues to improve. We do not know exactly his baseline. We will continue to check BMP daily. 6. Metabolic encephalopathy. The patient is a little bit more awake today. We will continue to monitor this patient closely. 7. Deep vein thrombosis prophylaxis. Patient is on SCDs. 8. Disposition. Patient needs to be still on insulin drip so we will continue to keep him in the intensive care unit. cc: Gurinder Gaona MD
[2019-02-14 10:21] LABS: ALLEN TEST YES; BE -8.6 mmoll (-3.0-3.0); BLOOD TYPE ARTERIAL; HCO3-(ACT) 18.2 mmoll (20.0-26.0); METHB 1.2 % (0.0-1.5); O2(CT) 17.7 mL/dL (15.0-23.0); O2HB 95.6 % (95.0-99.0); PCO2(98.6) 27 mmHg (35-45); PO2(98.6) 87 mmHg (60-100); SAMPLE BLOOD; SAO2 98.7 % (95.0-100.0); THB 13.1 g/dL (11.5-17.4); pH(98.6) 7.36 (7.35-7.45)
[2019-02-14 10:28] LABS: MODALITY ROOM AIR
[2019-02-14 10:56] LABS: MAGNESIUM 2.8 mg/dL (1.5-2.7); PHOSPHORUS 1.6 mg/dL (2.7-4.5)
[2019-02-14 11:01] LABS: CALCIUM 8.5 mg/dL (8.8-10.2); CREATININE 1.6 mg/dL (0.7-1.2); POTASSIUM 4.4 mmol/L (3.5-5.1)
[2019-02-14 13:42] LABS: CALCIUM 8.7 mg/dL (8.8-10.2); CREATININE 1.5 mg/dL (0.7-1.2); MAGNESIUM 2.9 mg/dL (1.5-2.7); PHOSPHORUS 2.1 mg/dL (2.7-4.5); POTASSIUM 4.4 mmol/L (3.5-5.1)
[2019-02-14 15:12] LABS: ALLEN TEST YES; BE -7.6 mmoll (-3.0-3.0); BLOOD TYPE ARTERIAL; HCO3-(ACT) 18.9 mmoll (20.0-26.0); METHB 1.3 % (0.0-1.5); O2(CT) 17.4 mL/dL (15.0-23.0); O2HB 94.9 % (95.0-99.0); PCO2(98.6) 27 mmHg (35-45); PO2(98.6) 74 mmHg (60-100); SAMPLE BLOOD; pH(98.6) 7.38 (7.35-7.45)
[2019-02-14 15:13] LABS: MODALITY ROOM AIR
[2019-02-14 16:46] LABS: CALCIUM 8.6 mg/dL (8.8-10.2); CREATININE 1.6 mg/dL (0.7-1.2); MAGNESIUM 2.8 mg/dL (1.5-2.7); PHOSPHORUS 1.9 mg/dL (2.7-4.5); POTASSIUM 4.4 mmol/L (3.5-5.1)
[2019-02-14 17:30] LABS: BLOOD TYPE ARTERIAL; SAMPLE BLOOD
[2019-02-14 17:31] LABS: BE -9.7 mmoll (-3.0-3.0); HCO3-(ACT) 17.3 mmoll (20.0-26.0); PCO2(98.6) 24 mmHg (35-45); PO2(98.6) 95 mmHg (60-100); SAO2 99.1 % (95.0-100.0); pH(98.6) 7.37 (7.35-7.45)
[2019-02-14 17:32] LABS: ALLEN TEST YES; METHB 1.6 % (0.0-1.5); MODALITY ROOM AIR; O2(CT) 16.2 mL/dL (15.0-23.0); O2HB 95.6 % (95.0-99.0)
[2019-02-14 21:34] LABS: CALCIUM 8.6 mg/dL (8.8-10.2); CREATININE 1.5 mg/dL (0.7-1.2); MAGNESIUM 2.7 mg/dL (1.5-2.7); PHOSPHORUS 2.1 mg/dL (2.7-4.5); POTASSIUM 4.5 mmol/L (3.5-5.1)
[2019-02-14 21:54] LABS: ALLEN TEST YES; BLOOD TYPE ARTERIAL; HCO3-(ACT) 18.6 mmoll (20.0-26.0); METHB 1.4 % (0.0-1.5); O2(CT) 26.5 mL/dL (15.0-23.0); O2HB 95.2 % (95.0-99.0); PCO2(98.6) 28 mmHg (35-45); PO2(98.6) 90 mmHg (60-100); SAMPLE BLOOD; SAO2 98.8 % (95.0-100.0); THB 19.8 g/dL (11.5-17.4); pH(98.6) 7.35 (7.35-7.45)
[2019-02-14 21:57] LABS: MODALITY ROOM AIR
[2019-02-14] MEDS: HUMULIN R 100 UNIT in NS 99 ML IV SCH (22:22)
[2019-02-15] MEDS: D5 1/2 NS 1,000 ML IV SCH (00:08)
[2019-02-15 01:14] LABS: ALLEN TEST YES; BE -7.6 mmoll (-3.0-3.0); BLOOD TYPE ARTERIAL; METHB 1.2 % (0.0-1.5); O2(CT) 17.5 mL/dL (15.0-23.0); O2HB 95.8 % (95.0-99.0); PCO2(98.6) 27 mmHg (35-45); PO2(98.6) 91 mmHg (60-100); SAMPLE BLOOD; SAO2 99.1 % (95.0-100.0); THB 12.9 g/dL (11.5-17.4); pH(98.6) 7.38 (7.35-7.45)
[2019-02-15 01:16] LABS: MODALITY ROOM AIR
[2019-02-15 01:34] LABS: ESTIMATED GFR > 60
[2019-02-15 01:41] LABS: AGAP 8; BUN 22 mg/dL (8-22); CALCIUM 8.6 mg/dL (8.8-10.2); CHLORIDE 122 mmol/L (98-107); COSMO 306; CREATININE 1.4 mg/dL (0.7-1.2); GLUCOSE 321 mg/dL (70-104); MAGNESIUM 2.6 mg/dL (1.5-2.7); POTASSIUM 4.5 mmol/L (3.5-5.1); SODIUM 146 mmol/L (136-145); TCO2 16 mmol/L (25-35)
[2019-02-15] MEDS: NS 1,000 ML IV SCH (01:52)
[2019-02-15] MEDS: POTASSIUM CHLORIDE 20 MEQ/SWI 20 MEQ/100 ML IVPB IV PRN (02:05)
[2019-02-15] MEDS: ZOSYN 2.25 GM in NS 50 ML IV SCH ×4 (03:25→22:25)
[2019-02-15 04:46] LABS: ALLEN TEST YES; BLOOD TYPE ARTERIAL; HCO3-(ACT) 20.2 mmoll (20.0-26.0); METHB 1.5 % (0.0-1.5); O2(CT) 18.1 mL/dL (15.0-23.0); O2HB 95.9 % (95.0-99.0); PCO2(98.6) 27 mmHg (35-45); PO2(98.6) 114 mmHg (60-100); SAMPLE BLOOD; SAO2 99.3 % (95.0-100.0); THB 13.3 g/dL (11.5-17.4); pH(98.6) 7.41 (7.35-7.45)
[2019-02-15 04:47] LABS: MODALITY ROOM AIR
[2019-02-15 05:08] LABS: BASO# 0.02 X1000 (0.0-0.2); BASO% 0.2 % (0.0-0.8); EOS# 0.06 X1000 (0.0-0.7); EOS% 0.7 % (0.0-10.0); HEMATOCRIT 35.6 % (42.0-52.0); HEMOGLOBIN 12.3 g/dL (14.0-18.0); IMM GRAN% 1.2 % (0.0-0.5); LYMPH# 1.57 X1000 (1.2-3.4); LYMPH% 18.2 % (20.5-51.1); MCHC 34.6 g/dL (33-37); MONO# 1.12 X1000 (0.11-0.59); MPV 11.4 FL (7.4-10.4); NEUT# 5.75 X1000 (1.4-6.5); NEUT% 66.7 % (42.2-75.2); PLT 160 X1000 (130-400); RBC 4.24 XMIL (4.7-6.1); RDW 14.2 % (11.5-14.5); WBC 8.62 X1000 (4.8-10.8)
[2019-02-15] MEDS: PROTONIX IV SCH (05:10)
[2019-02-15] MEDS: SODIUM CHLORIDE 0.9% INJ SCH (05:10)
[2019-02-15 05:23] LABS: ESTIMATED GFR > 60
[2019-02-15 05:28] LABS: AGAP 8; BUN 20 mg/dL (8-22); CALCIUM 8.6 mg/dL (8.8-10.2); CHLORIDE 125 mmol/L (98-107); COSMO 309; CREATININE 1.4 mg/dL (0.7-1.2); GLUCOSE 249 mg/dL (70-104); MAGNESIUM 2.6 mg/dL (1.5-2.7); POTASSIUM 4.2 mmol/L (3.5-5.1); SODIUM 150 mmol/L (136-145); TCO2 17 mmol/L (25-35)
[2019-02-15] MEDS ORDERED: SODIUM PHOSPHATE 35 MMOL in NS 250 ML IV ONE (06:58)
[2019-02-15] MEDS: HUMALOG SUBQ SCH ×4 (07:38→22:25)
[2019-02-15] MEDS: D5W 1,000 ML IV SCH ×3 (07:38→22:25)
[2019-02-15] MEDS ORDERED: INSULIN PEN NEEDLES ONE (07:41)
--- NOTE | 2019-02-15 07:59 | PROGRESS NOTE ---
DATE: 02/15/2019 SUBJECTIVE: Patient reports feeling fine. He looks definitely more awake and alert. No acute issues noted as per nursing staff overnight. OBJECTIVE: Vital Signs: Temperature 97.9 degrees, heart rate is 96, respiratory rate 20, blood pressure 137/99, O2 saturation 99% on room air. General Examination: This is a chronically ill- appearing, 58-year-old, male, lying in bed, in no acute distress. Cardiovascular Examination: S1 and S2 heard. No murmurs, gallops, or rubs. Regular rate and rhythm. Respiratory Examination: Clear bilaterally to auscultation. No work of breathing or using accessory muscles. Abdomen: Soft, nontender to palpation. Bowel sounds present. No organomegaly. Extremities: No clubbing, cyanosis, or edema. Peripheral pulses present in both legs. Neurological Examination: The patient is alert and oriented x3. Moves 4 extremities. Laboratory Data: White cell count 8.62, hemoglobin 12.3, hematocrit 35.6, platelets 160,000. ABG shows pH 7.41, pCO2 27, PO2 114. Sodium 150, creatinine 1.4, anion gap is 8, bicarbonate 17, phosphorus is 1.7, magnesium 2.6. ASSESSMENT/PLAN: 1. Diabetic ketoacidosis. His gap has closed, even though the bicarbonate is still low but better in comparing with yesterday. I think we can stop the drip and start this patient on basal insulin; in this case, it is going to be Lantus. We are going to start also sliding scale insulin on this patient and start a clear liquid diet on him. 2. New onset diabetes mellitus type 2. As we mentioned above, we will start basal insulin today and see how he does. 3. Hypernatremia. We are going to start free water today and check BMP at 1 p.m. today and see how he does. 4. Acute kidney injury. Creatinine continues to improve. As we mentioned before, we do not know exactly what his baseline creatinine is but he continues to improve. We will continue to check BMP daily. 5. Metabolic encephalopathy. That is much better today. We will continue to monitor. 6. Deep vein thrombosis prophylaxis. Patient is on sequential compression devices. 7. Disposition. At this point, I think the patient can be transferred to a regular floor. cc: Gurinder Gaona MD
[2019-02-15] MEDS: BASAGLAR SUBQ SCH (08:01)
[2019-02-15] MEDS: DULCOLAX PR SCH ×2 (08:02→22:26)
[2019-02-15 15:18] LABS: AGAP 11; CHLORIDE 117 mmol/L (98-107); POTASSIUM 3.7 mmol/L (3.5-5.1); SODIUM 144 mmol/L (136-145); TCO2 16 mmol/L (25-35)
[2019-02-15 15:19] LABS: BUN 17 mg/dL (8-22); COSMO 307; CREATININE 1.3 mg/dL (0.7-1.2); ESTIMATED GFR > 60
[2019-02-15 15:33] LABS: GLUCOSE 428 mg/dL (70-104)
[2019-02-16] MEDS: D5W 1,000 ML IV SCH ×2 (04:15→05:03)
[2019-02-16] MEDS: SODIUM CHLORIDE 0.9% INJ SCH (05:02)
[2019-02-16] MEDS: PROTONIX IV SCH (05:02)
[2019-02-16] MEDS: ZOSYN 2.25 GM in NS 50 ML IV SCH ×4 (05:03→22:07)
[2019-02-16] MEDS: HUMALOG SUBQ SCH ×4 (06:46→22:08)
[2019-02-16 07:19] LABS: BASO# 0.03 X1000 (0.0-0.2); BASO% 0.3 % (0.0-0.8); EOS# 0.26 X1000 (0.0-0.7); EOS% 2.5 % (0.0-10.0); HEMOGLOBIN 11.7 g/dL (14.0-18.0); IMM GRAN# 0.35 X1000 (0.0-0.04); IMM GRAN% 3.4 % (0.0-0.5); LYMPH# 2.47 X1000 (1.2-3.4); MCH 29.3 PG (27-31); MCHC 34.4 g/dL (33-37); MCV 85.2 FL (81-99); MONO# 1.36 X1000 (0.11-0.59); MONO% 13.2 % (1.7-9.3); MPV 11.3 FL (7.4-10.4); NEUT# 5.84 X1000 (1.4-6.5); NEUT% 56.6 % (42.2-75.2); PLT 146 X1000 (130-400); RBC 3.99 XMIL (4.7-6.1); RDW 13.8 % (11.5-14.5); WBC 10.31 X1000 (4.8-10.8)
[2019-02-16 07:46] LABS: AGAP 10; BUN 11 mg/dL (8-22); CHLORIDE 111 mmol/L (98-107); COSMO 285; CREATININE 1.2 mg/dL (0.7-1.2); ESTIMATED GFR > 60; GLUCOSE 247 mg/dL (70-104); PHOSPHORUS 3.7 mg/dL (2.7-4.5); POTASSIUM 3.4 mmol/L (3.5-5.1); SODIUM 139 mmol/L (136-145); TCO2 18 mmol/L (25-35)
[2019-02-16] MEDS: BASAGLAR SUBQ SCH (09:16)
[2019-02-16] MEDS: DULCOLAX PR SCH ×2 (09:18→22:09)
--- NOTE | 2019-02-16 10:48 | PROGRESS NOTE ---
DATE: 02/16/2019 SUBJECTIVE: The patient reports feeling much better. He looks more awake to me this morning. No complaints at this time. OBJECTIVE: Vital Signs: Temperature 98.9 degrees, heart rate 84, respiratory rate 16, blood pressure 148/74. O2 saturation 99% on room air. Constitutional: This is a chronically ill- appearing 58-year-old male, lying in bed, in no acute distress. Cardiovascular: S1 and S2 heard. No murmurs, gallops, or rubs. Regular rate and rhythm. Respiratory: Clear bilaterally to auscultation. No work of breathing or using accessory muscles. Abdomen: Soft, nontender to palpation. Bowel sounds present. No organomegaly. Extremities: No clubbing, cyanosis, or edema. Peripheral pulses present in both legs. Neurological: Patient is alert and oriented x3. Moves 4 extremities. LABORATORY DATA: White cell count is 10.31, hemoglobin 11.7, hematocrit 34.0 and platelets 146,000. Sodium 139, potassium 3.4, blood sugar 247 and creatinine 1.2. ASSESSMENT AND PLAN: 1. Diabetic ketoacidosis. The patient is on basal insulin Lantus 40 units in the morning, and insulin sliding scale insulin as well. He is doing good with that. Anion gap is closed. At this point, we will start diabetic diet. We will keep checking BMP while this patient is in the hospital. 2. New onset diabetes mellitus type 2. As we mentioned above, we will continue with Lantus. 3. Hyponatremia, resolved. 4. Acute kidney injury, completely resolved. That was secondary to dehydration. 5. Metabolic encephalopathy much better. We will continue to monitor the patient closely. 6. DVT prophylaxis. Patient is on SCD's. 7. Disposition: Because this patient has not been up since he was admitted to the hospital, I am going to consult physical therapy. Patient reports that he used a walker at home. We will see how this patient does. If he is able to mobilize, I think he can be discharged tomorrow morning. cc: Gurinder Gaona MD
[2019-02-17] MEDS: PRILOSEC PO SCH (06:10)
[2019-02-17] MEDS: ZOSYN 2.25 GM in NS 50 ML IV SCH ×4 (06:10→21:32)
[2019-02-17] MEDS: HUMALOG SUBQ SCH ×4 (06:11→21:22)
[2019-02-17 07:27] LABS: BASO# 0.03 X1000 (0.0-0.2); BASO% 0.3 % (0.0-0.8); EOS# 0.27 X1000 (0.0-0.7); EOS% 2.6 % (0.0-10.0); HEMATOCRIT 36.6 % (42.0-52.0); HEMOGLOBIN 12.7 g/dL (14.0-18.0); IMM GRAN# 0.31 X1000 (0.0-0.04); LYMPH# 2.42 X1000 (1.2-3.4); LYMPH% 23.1 % (20.5-51.1); MCH 29.5 PG (27-31); MCHC 34.7 g/dL (33-37); MCV 84.9 FL (81-99); MONO# 1.54 X1000 (0.11-0.59); MONO% 14.7 % (1.7-9.3); MPV 11.1 FL (7.4-10.4); NEUT# 5.91 X1000 (1.4-6.5); NEUT% 56.3 % (42.2-75.2); PLT 156 X1000 (130-400); RBC 4.31 XMIL (4.7-6.1); RDW 13.6 % (11.5-14.5); WBC 10.48 X1000 (4.8-10.8)
[2019-02-17 08:00] LABS: AGAP 13; BUN 9 mg/dL (8-22); CALCIUM 8.1 mg/dL (8.8-10.2); CHLORIDE 113 mmol/L (98-107); COSMO 293; CREATININE 1.2 mg/dL (0.7-1.2); ESTIMATED GFR > 60; GLUCOSE 164 mg/dL (70-104); PHOSPHORUS 3.7 mg/dL (2.7-4.5); POTASSIUM 3.4 mmol/L (3.5-5.1); SODIUM 146 mmol/L (136-145); TCO2 20 mmol/L (25-35)
[2019-02-17] MEDS: BASAGLAR SUBQ SCH (09:49)
[2019-02-17] MEDS: DULCOLAX PR SCH ×2 (09:51→21:22)
--- NOTE | 2019-02-17 11:45 | PROGRESS NOTE ---
DATE: 02/17/2019 SUBJECTIVE: The patient reports feeling fine. According to nursing staff, the patient has not been able to even sit in the chair, is not able to walk apparently. OBJECTIVE: Vital Signs: Temperature 97.9 degrees, heart rate 89, respiratory rate 20, blood pressure 122/72, O2 saturation 100% on room air. General: This is a chronically ill-appearing, 58-year-old male, lying in bed, in no acute distress. Cardiovascular: S1, S2 heard. No murmurs, gallops, or rubs. Regular rate and rhythm. Respiratory: Clear bilaterally to auscultation. No work of breathing or using accessory muscles. Abdomen: Soft, nontender to palpation. Bowel sounds present. No organomegaly. Extremities: No clubbing, cyanosis, or edema. Peripheral pulses present in both legs. Neurological: Patient is alert and oriented x3. Moves 4 extremities. LABORATORY DATA: Reviewed. ASSESSMENT AND PLAN: 1. Diabetic ketoacidosis. Currently, this patient is on Lantus 40 units in the morning and blood sugars are much better controlled. At this point, we will continue with same management. He is also on sliding scale insulin as well. We will continue with the same management. 2. New onset diabetes mellitus type 2. We will continue with the same management. 3. Acute kidney injury. Completely resolved. 4. Hyponatremia, resolved. 5. Metabolic encephalopathy, much better. 6. Physical deconditioning. Physical Therapy has been consulted yesterday, but this patient has not been seen yet. We are going to consult them today but I am thinking this patient may need to go to rehab. 7. Disposition. Depending upon PT evaluation. cc: Gurinder Gaona MD
[2019-02-18] MEDS: PRILOSEC PO SCH (06:40)
[2019-02-18] MEDS: ZOSYN 2.25 GM in NS 50 ML IV SCH ×3 (06:40→18:42)
[2019-02-18] MEDS: HUMALOG SUBQ SCH ×4 (06:41→20:17)
[2019-02-18 06:54] LABS: BASO# 0.04 X1000 (0.0-0.2); BASO% 0.4 % (0.0-0.8); EOS# 0.25 X1000 (0.0-0.7); EOS% 2.8 % (0.0-10.0); HEMATOCRIT 36.9 % (42.0-52.0); HEMOGLOBIN 12.8 g/dL (14.0-18.0); IMM GRAN# 0.33 X1000 (0.0-0.04); IMM GRAN% 3.6 % (0.0-0.5); LYMPH% 24.2 % (20.5-51.1); MCH 29.4 PG (27-31); MCHC 34.7 g/dL (33-37); MCV 84.8 FL (81-99); MONO% 16.5 % (1.7-9.3); MPV 10.6 FL (7.4-10.4); NEUT# 4.76 X1000 (1.4-6.5); NEUT% 52.5 % (42.2-75.2); PLT 158 X1000 (130-400); RBC 4.35 XMIL (4.7-6.1); RDW 13.4 % (11.5-14.5); WBC 9.08 X1000 (4.8-10.8)
[2019-02-18 07:27] LABS: AGAP 12; BUN 9 mg/dL (8-22); CHLORIDE 110 mmol/L (98-107); COSMO 287; CREATININE 1.2 mg/dL (0.7-1.2); ESTIMATED GFR > 60; GLUCOSE 128 mg/dL (70-104); PHOSPHORUS 3.9 mg/dL (2.7-4.5); POTASSIUM 3.2 mmol/L (3.5-5.1); SODIUM 144 mmol/L (136-145); TCO2 22 mmol/L (25-35)
[2019-02-18] MEDS ORDERED: KLOR-CON PO ONE (08:59)
[2019-02-18] MEDS: BASAGLAR SUBQ SCH (10:21)
[2019-02-18] MEDS: DULCOLAX PR SCH ×2 (10:22→20:17)
--- NOTE | 2019-02-18 11:19 | PROGRESS NOTE ---
DATE: 02/18/2019 SUBJECTIVE: The patient reports feeling fine. No nausea or vomiting. OBJECTIVE: Vital Signs: Temperature 98.0, heart rate 84, respiratory rate 22, blood pressure 135/83, O2 saturation 100% on room air. General Examination: This is a chronically ill- appearing, 58-year-old, male, lying in bed, in no acute distress. Cardiovascular Examination: S1 and S2 heard. No murmurs, gallops, or rubs. Regular rate and rhythm. Respiratory Examination: Clear bilaterally to auscultation. No work of breathing or using accessory muscles. Abdomen: Soft, nontender to palpation. Bowel sounds present. No organomegaly. Extremities: No clubbing, cyanosis, or edema. Peripheral pulses present in both legs. Neurological Examination: The patient is alert and oriented x3. Moves 4 extremities. Laboratory Data: Reviewed. ASSESSMENT AND PLAN: 1. Diabetic ketoacidosis, resolved. Patient is on Lantus 40 units daily. Blood sugars are better controlled. We will continue with the same management. 2. New onset diabetes mellitus type 2. We will continue with the treatment mentioned above. 3. Acute kidney injury, completely resolved. 4. Hyponatremia, resolved. 5. Metabolic encephalopathy, resolved. 6. Physical deconditioning. Physical therapy working with this patient. Apparently, this patient may need to have a walker. Most likely, he will also need home health. 7. Disposition. I think the patient can be discharged tomorrow. cc: Gurinder Gaona MD
[2019-02-19] MEDS: ZOSYN 2.25 GM in NS 50 ML IV SCH ×3 (02:23→17:19)
[2019-02-19] MEDS: PRILOSEC PO SCH ×2 (05:55→06:16)
[2019-02-19] MEDS: HUMALOG SUBQ SCH ×3 (06:16→15:43)
[2019-02-19 07:06] LABS: BASO# 0.04 X1000 (0.0-0.2); BASO% 0.4 % (0.0-0.8); EOS# 0.16 X1000 (0.0-0.7); EOS% 1.8 % (0.0-10.0); HEMATOCRIT 35.5 % (42.0-52.0); HEMOGLOBIN 12.1 g/dL (14.0-18.0); IMM GRAN# 0.18 X1000 (0.0-0.04); LYMPH# 1.86 X1000 (1.2-3.4); LYMPH% 20.7 % (20.5-51.1); MCH 29.2 PG (27-31); MCHC 34.1 g/dL (33-37); MCV 85.5 FL (81-99); MONO# 1.57 X1000 (0.11-0.59); MONO% 17.4 % (1.7-9.3); MPV 10.6 FL (7.4-10.4); NEUT# 5.19 X1000 (1.4-6.5); NEUT% 57.7 % (42.2-75.2); PLT 172 X1000 (130-400); RBC 4.15 XMIL (4.7-6.1); RDW 13.3 % (11.5-14.5)
[2019-02-19 07:30] LABS: AGAP 14; BUN 8 mg/dL (8-22); CALCIUM 8.3 mg/dL (8.8-10.2); CHLORIDE 109 mmol/L (98-107); COSMO 291; CREATININE 1.2 mg/dL (0.7-1.2); ESTIMATED GFR > 60; GLUCOSE 132 mg/dL (70-104); PHOSPHORUS 3.8 mg/dL (2.7-4.5); POTASSIUM 3.3 mmol/L (3.5-5.1); SODIUM 146 mmol/L (136-145); TCO2 23 mmol/L (25-35)
[2019-02-19] MEDS: BASAGLAR SUBQ SCH (09:10)
[2019-02-19] MEDS: DULCOLAX PR SCH (09:11)
[2019-02-19] MEDS ORDERED: KLOR-CON PO ONE (09:31)
[2019-02-19] MEDS ORDERED: INSULIN PEN NEEDLES ONE (09:32)
[2019-02-19 16:37] VITALS: BP 130/71
--- NOTE | 2019-02-19 19:12 | DISCHARGE SUMMARY ---
ADMISSION DATE: 02/12/2019 DISCHARGE DATE: 02/19/2019 CONSULTATIONS: None. PERTINENT PROCEDURES: Head CT, no evidence of acute intracranial disease. Probable chronic maxillary, ethmoid and frontal sinusitis. DISCHARGE DIAGNOSES: 1. Diabetic ketoacidosis, resolved. 2. New onset diabetes mellitus type 2. Patient will continue on p.o. metformin and Novolin 70/30. 3. Acute kidney injury resolved. 4. Hyponatremia resolved. 5. Metabolic encephalopathy, resolved. 6. Physical deconditioning. Patient has worked with physical therapy and will be discharged home with home health. HISTORY OF PRESENT ILLNESS: Mr. Swann is a 58-year-old male who presented to [facility] ED after being found on the bathroom floor by his mother who has reported no known medical history and had not seen a doctor in over 30 years. She reported over the last few days he had not felt well. He was tired and weak. She noticed him having some difficulty with ambulation and uses his sister's cane for assistance. He did report some nausea and abdominal pain. On evaluation in the ED, he was noted to be hyperglycemic with an initial serum glucose of 947. Other laboratory data revealed he was in DKA. He was transferred to [facility] ICU for higher level of care. For his diabetic ketoacidosis he was placed on the DKA protocol. He was aggressively hydrated and has been transitioned to p.o. metformin and Novolin 70/30. He has been educated on diabetic diet. VITAL SIGNS: Temperature is 98.3 degrees, heart rate 86, respirations 26, blood pressure 131/74. O2 is 99% on room air. Blood glucose was 132. DISCHARGE DIET: Diabetic. DISCHARGE MEDICATIONS: 1. Glucophage 500 mg p.o. as directed. Patient is to take half a tablet p.o. daily for a week then 1 tablet p.o. b.i.d. for a week, then 2 tablets p.o. b.i.d. continuously. 2. Novolin 70/30, 30 units subcutaneously b.i.d. FOLLOWUP: Mr. Swann is being discharged back home with self care. He will need to take all medications as prescribed. He will need to his check blood sugar regularly. He will need to obtain a primary care provider from the list that has been provided to him. He is also receiving assistance from the [facility] referral program for medication needs as well as speaking with [facility] for financial assistance. He can return to the ED or call 911 for any worsening of symptoms. Dictated by CARLOS Rios for Gurinder Gaona MD cc: Gurinder Gaona MD [facility]
== END 2019-02-19 18:20 | disposition home or self-care (01) | DRG 637 ==
LOC: P.ED 23:25 → SUATTDRO 02-12 01:50 → ICU 02-12 01:50 → 3N 02-15 10:18
PROVIDERS: ATTEND Internal Medicine
CPT/HCPCS: 51702; 70450; 71010; 71045; 80048; 80053; 80104; 80301; 80305; 80307; 80324; 80329; 81001; 82003; 82270; 82330; 82805; 82948; 83036; 83605; 83735; 84100; 84132; 84484; 85014; 85018; 85025; 85610; 85730; 87040; 87045; 87046; 87205; 87324; 89055; 93005; 96361; 96365; 96368; 96375; 97162; 97530; 99285; 99291; A9270; C9113; G0431; G0434; G0477; G0480; G6039; J1815; J2543; J3370; J3480; J7030; J7042; J7050; J7070; S0164; XXXXX

== ENCOUNTER 2019-09-26 21:28 | Inpatient (IN) ==
[2019-09-26] MEDS ORDERED: NS 1,000 ML IV ONE ×2 (22:00→22:35)
[2019-09-26 22:05] LABS: ALLEN TEST YES; BE -29.2 mmoll (-3.0-3.0); BLOOD TYPE ARTERIAL; HCO3-(ACT) 2.1 mmoll (20.0-26.0); METHB 0.9 % (0.0-1.5); O2(CT) 25.3 mL/dL (15.0-23.0); PO2(98.6) 148 mmHg (60-100); SAMPLE BLOOD; SAO2 99.1 % (95.0-100.0); THB 18.4 g/dL (11.5-17.4)
[2019-09-26 22:07] LABS: MODALITY ROOM AIR; PCO2(98.6) 13 mmHg (35-45)
[2019-09-26] MEDS ORDERED: NS 1,000 ML ONE (22:08)
[2019-09-26] MEDS ORDERED: HUMULIN R IV ONE (22:35)
[2019-09-26] MEDS ORDERED: ROCEPHIN 1 GM in NS 50 ML IV ONE (22:37)
[2019-09-26] MEDS ORDERED: HUMULIN R 100 UNIT in NS 100 ML IV SCH (22:45)
[2019-09-26] MEDS ORDERED: XYLOCAINE 2% JELLY UROJECT ONE (22:47)
[2019-09-26 22:55] LABS: ACETONE SERUM MODERATE (NEGATIVE)
[2019-09-26 23:18] LABS: URINE SOURCE CATH
[2019-09-26 23:22] LABS: BILIRUBIN URINE NEGATIVE (NEGATIVE); BLOOD URINE SMALL (NEGATIVE); COLOR YELLOW; GLUCOSE URINE >1000 mg/dL (NEGATIVE); KETONE URINE 60 mg/dL (NEGATIVE); LEUKOCYTES URINE NEGATIVE (NEGATIVE); NITRITE URINE NEGATIVE (NEGATIVE); PH URINE 5.5; PROTEIN URINE 50 mg/dL (NEGATIVE); SP GRAVITY URINE 1.024; TURBIDITY URINE CLEAR (CLEAR); UROBILINOGEN URINE NORMAL (NORMAL)
[2019-09-26 23:24] LABS: UR EPITHELIAL CELLS <10 /HPF (<10); URINE BACTERIA NEGATIVE /HPF; URINE RBC <10 /HPF (<10); URINE WBC <10 /HPF (<10)
[2019-09-26 23:31] LABS: UR AMPHETAMINES QUAL NONE DETECTED (NONE DETECT); UR BARBITUATES QUAL NONE DETECTED (NONE DETECT); UR BENZODIAZEPIN QUAL NONE DETECTED (NONE DETECT); UR CANNABINOIDS QUAL NONE DETECTED (NONE DETECT); UR COCAINE QUAL NONE DETECTED (NONE DETECT); UR METHADONE QUAL NONE DETECTED (NONE DETECT); UR OPIATES QUAL NONE DETECTED (NONE DETECT); UR OXYCODONE QUAL NONE DETECTED (NONE DETECT); UR PCP QUAL NONE DETECTED (NONE DETECT)
[2019-09-26 23:38] LABS: BASO# 0.01 X1000 (0.0-0.2); BASO% 0.1 % (0.0-0.8); HEMATOCRIT 52.5 % (42.0-52.0); HEMOGLOBIN 16.8 g/dL (14.0-18.0); IMM GRAN# 0.13 X1000 (0.0-0.04); IMM GRAN% 1.1 % (0.0-0.5); LYMPH# 1.19 X1000 (1.2-3.4); LYMPH% 9.7 % (20.5-51.1); MCH 28.9 PG (27-31); MCV 90.2 FL (81-99); MONO# 0.28 X1000 (0.11-0.59); MONO% 2.3 % (1.7-9.3); MPV 13.1 FL (7.4-10.4); NEUT% 86.8 % (42.2-75.2); PLT 278 X1000 (130-400); RBC 5.82 XMIL (4.7-6.1); RDW 14.1 % (11.5-14.5); WBC 12.31 X1000 (4.8-10.8)
--- NOTE | 2019-09-27 00:08 | EKG Report ---
Test Performed on : 09/26/2019 11:51:50 PM Test Reason : AMS Blood Pressure : / mmHG Vent. Rate : 085 BPM Atrial Rate : 085 BPM P-R Int : 136 ms QRS Dur : 092 ms QT Int : 398 ms P-R-T Axes : 067 063 037 degrees QTc Int : 473 ms Sinus rhythm. with premature ventricular complexes. or fusion complexes ST elevation, consider early repolarization, pericarditis, or injury Abnormal ECG When compared with ECG of 12-FEB-2019 00:19, fusion complexes are now present premature ventricular complexes. are now present ST more elevated in Inferior leads Unconfirmed Result
[2019-09-27] MEDS ORDERED: LEVOPHED 8 MG in D5 1/2 NS 250 ML IV SCH (01:00)
[2019-09-27 01:34] LABS: ALB/GLOB RATIO 1.2; ALBUMIN 3.7 g/dL (3.5-5.0); ALKALINE PHOSPHATASE 100 U/L (32-122); BUN 75 mg/dL (8-22); CALCIUM 8.6 mg/dL (8.8-10.2); CHLORIDE 95 mmol/L (98-107); COSMO 341; CREATININE 4.4 mg/dL (0.7-1.2); ESTIMATED GFR 17; GOT 6 U/L (10-34); GPT 11 U/L (10-44); POTASSIUM 4.1 mmol/L (3.5-5.1); SODIUM 134 mmol/L (136-145); TOTAL BILIRUBIN 0.22 mg/dL (0.20-1.00); TOTAL PROTEIN 6.8 g/dL (6.3-8.3)
[2019-09-27 01:35] LABS: GLUCOSE 1053 mg/dL (70-104)
--- NOTE | 2019-09-27 02:16 | PROVIDER DOCUMENTATION ---
This chart was entered by Nandini Lynch Scribe, acting as scribe for Ion Meng MD. HPI-General Adult <Dawna Ballard - Last Filed: 09/26/19 23:00> - General Source: EMS Unable to obtain history due to:: altered - History of Present Illness -Gen Adult Nature of Presenting Problems: pt is a 58 yr old male presenting via EMS from home, EMS reports pt lives with his mother, mother has been in hospital for the last few days, sister went by this evening to check on pt and found him unresponsive lying in the floor, on EMS arrival they found pt to be minimally responsive to painful stimuli, no verbal responses, pt hx of DKA, BGL to high to read per EMS. pt blood pressure was 88/49 initially Onset/Duration: reports: unsure Timing: reports: still present - Diabetes Related Context Context: reports: high blood sugar, unresponsive, prior DKA hospitalization <Ion Meng - Last Filed: 09/27/19 02:16> - General Chief Complaint: High Blood Sugar Stated Complaint: HIIGH BLOOD SUGAR Time Seen by Provider: 09/26/19 21:32 Allergies/Adverse Reactions: Patient Allergies Allergy/AdvReac Type Severity Reaction Status Date / Time No Known Allergies Allergy Verified 09/27/19 02:06 Home Medications: Home Medication List Medication Instructions Recorded Confirmed Last Taken Type Insulin NPH Hum/Reg Insulin Hm 30 unit SQ BID #5 ml 02/19/19 09/27/19 Unknown Rx [Novolin 70-30 100 Unit/ml Vial] Metformin [Glucophage] 500 mg PO DIRECTED #180 tab 02/19/19 09/27/19 Unknown Rx Review of Systems - Adult - REVIEW OF SYSTEMS - ADULT ROS:: unobtainable per condition Constitutional: reports: no symptoms reported Eyes: reports: no symptoms reported Ears, Nose, Mouth & Throat: reports: no symptoms reported Cardiovascular: reports: no symptoms reported Respiratory: reports: no symptoms reported Gastrointestinal: reports: no symptoms reported Genitourinary: reports: no symptoms reported Musculoskeletal: reports: no symptoms reported Integumentary: reports: no symptoms reported Neurological: reports: no symptoms reported Psychiatric: reports: no symptoms reported Endocrine: reports: no symptoms reported Hematologic/Lymphatic: reports: no symptoms reported Allergic/Immunologic: reports: no symptoms reported All Other Systems: Reviewed and Negative <Ion Meng - Last Filed: 09/27/19 02:16> Past History - Adult - PAST MEDICAL HISTORY-ADULT Review of Records: reports: Old Records Reviewed, Nursing Assessment Review, Medications Reviewed, Social history reviewed & non-contributory. Major Childhood Illnesses: reports: denies history Cardiovascular: reports: denies history Respiratory: reports: denies history Gastrointestinal: reports: denies history Obstetrical/Gynecological: reports: denies history Genitourinary: reports: denies history Musculoskeletal: reports: denies history Neurological: reports: denies history Endocrine/Immune: reports: denies history Other Conditions: reports: denies history - IMMUNIZATION STATUS Childhood Immunizations: See Nurse Assessment Flu Vaccine: See Nurse Assessment - FAMILY HISTORY Family History: reviewed, not pertinent - SOCIAL HISTORY Smoking: quit greater than 1 year Substance Use: denies Living Situation: family <Ion Meng - Last Filed: 09/27/19 02:16> Physical Exam-General - PHYSICAL EXAM-ADULT Initial Vital Signs Reviewed: Yes - CONSTITUTIONAL General Appearance: lethargic - HEAD, EARS, NOSE, MOUTH & THROAT HENMT: other (dry oral mucosa). negative: moist mucous membranes - NECK Neck: non-tender, supple - RESPIRATORY Respiratory: lungs clear, normal breath sounds, increased rate (40) - CARDIOVASCULAR Cardiovascular: normal peripheral pulses, no edema, tachycardia - GASTROINTESTINAL (ABDOMEN) Abdominal Exam: normal bowel sounds, non tender, soft - LYMPHATIC Lymphatic: no adenopathy - MUSCULOSKELETAL Back Exam: normal inspection Extremity: slow capillary refill. negative: pulse deficit - SKIN Integumentary: pallor, other (cold) <Ion Meng - Last Filed: 09/27/19 02:16> Progress - PLAN OF CARE/RESULTS Progress/Plan/Lab Results: Vital Signs - 8 hr 09/26/19 21:28 Temperature 97.1 F L Pulse Rate 115 H Respiratory Rate 33 H Blood Pressure 89/55 O2 Sat by Pulse Oximetry 95 Laboratory Results - last 24 hr 09/26/19 09/26/19 09/26/19 21:42 21:56 22:20 Specimen Type ARTERIAL Sample Site L RADIAL pH 6.90 L* pCO2 13 L* pO2 148 H HCO3 2.1 L Base Excess -29.2 L Oxyhemoglobin 97.0 ABG O2 Sat (Calculated) 25.3 H ABG O2 Saturation 99.1 ABG Carboxyhemoglobin 1.10 ABG Methemoglobin 0.9 Sergei Test YES A-a O2 Difference -15.0 Total Hemoglobin 18.4 H Lactate 2.60 H Blood Gas Modality ROOM AIR FiO2 % 21.0 POC Glucose 500 H D Acetone Level MODERATE A Orders Category Date Time Status Cardiac Monitoring DIRECTED Care 09/26/19 21:33 Active Saline Loc NOW Care 09/26/19 21:34 Active CHEST-PORTABLE [RAD] Stat Exams 09/26/19 21:[address] HEAD W/O CONTRAST [CT] Stat Exams 09/26/19 21:35 Ordered ABG [RESP] Routine Lab 09/26/19 21:56 Completed ACETONE SERUM [CHEM] Stat Lab 09/26/19 22:20 Results BLOOD CULTURE [BLDCUL] Stat Lab 09/26/19 22:20 Results CBC WITH ELECTRONIC DIFF [HEME] Stat Lab 09/26/19 22:49 Ordered COMPREHENSIVE METABOLIC PANEL [CHEM] Stat Lab 09/26/19 22:20 Results FREE T4 Stat Lab 09/26/19 22:49 Ordered LACTATE, PLASMA [CHEM] Stat Lab 09/26/19 22:49 Ordered PRO B-NATRIURETIC PEPTIDE Stat Lab 09/26/19 22:49 Ordered TROPONIN T Stat Lab 09/26/19 22:49 Ordered URINALYSIS W/POSS RFLX CULT [URINALYSIS] Stat Lab 09/26/19 22:49 Ordered URINE DRUG SCREEN Stat Lab 09/26/19 22:49 Ordered 0.9% Sodium Chloride Inj [Ns] 1,000 ml Med 09/26/19 22:08 Discontinued .ROUTE As directed 0.9% Sodium Chloride Inj [Ns] 1,000 ml Med 09/26/19 22:35 Active IV 999 mls/hr 0.9% Sodium Chloride Inj [Ns] 100 ml Med 09/26/19 22:45 Active Insulin Human Regular [Humulin R] 100 unit IV 6 mls/hr CefTRIAXONE [Rocephin] 1 gm Med 09/26/19 22:37 Active 0.9% Sodium Chloride Inj [Ns] 50 ml IV NOW Insulin Human Regular [Humulin R] Med 09/26/19 22:35 Discontinued 10 unit IV NOW ONE Lidocaine 2% Jelly Appl [Xylocaine 2% Jelly Uroject] Med 09/26/19 22:47 Discontinued 10 ml .ROUTE .STK-MED ONE EKG [EKG] Stat Ther 09/26/19 21:34 Ordered Result Diagrams: 09/26/19 22:20 <Dawna Ballard - Last Filed: 09/26/19 23:00> - PLAN OF CARE/RESULTS Result Diagrams: 09/26/19 22:20 09/26/19 22:20 - REASSESSMENT Reassessment #1 Time Reassessed: 00:52 Status: unchanged (2 LITER NS AND INSULIN GTT. SYS 83/ : BEGIN NOREPI GTT. BASIC CHEM STILL PENDING!) - EKG 1 Time of EKG reading by physician:: 23:51 EKG Read and Signed by:: Ion Meng EKG Interpretation (*Must complete 3 of following elements*): Abnormal (artifact) Rate: 85 Rhythm: sinus with PVCs [place]: normal QRS: PVC's LA Interval: normal ST Wave: normal - XRAY 1 XRAY Study: Chest Impression: Normal (lungs well expanded, central line in place), See EMR Report 2 XRAY Study: Chest Impression: Normal (lungs well expanded, central line in good position), See EMR Report - CT/MRI 1 CT Study: Head Impression: Normal, See EMR Report - CONSULTS/PCP/HOSPITALIST Notification #1 *Consult/PCP/Hospitalist*: DR MIRANDA Time Discussed: 02:07 Consult Disposition: Admit <Ion Meng - Last Filed: 09/27/19 02:16> Procedures - CENTRAL LINE Consent Form Signed?: No (EMERGENT; PATIENT ALTERED) Time-Out Verification Completed?: Yes Central Line Lumen: triple Catheter: Spanish: 7 Central Line Procedure Prep: Hand Hygeine Performed, Kit Utilized, Sterile Body Drape Placed, Antibiotic-coated Catheter Used Patient Position (To prevent Air Embolism): Trendelenburg (SC/IJ) Central Line Position: internal jugular (R) Ultrasound Guided?: Yes Hat, mask, sterile gown, & sterile gloves worn by physician?: Yes Site scrubbed vigorously for 30 seconds? (Groin: 2 min): Yes Anesthetic: 1%, Lidocaine/Xylocaine Post Procedure: Sutured in place, Sterile field maintained, BioPatch placed, Sterile dressing applied, Blood aspirated from each lumen, Placement verfied by XRAY Complications: none Procedure Comment: PROCEDURE PERFORMED BY DR. BALLARD AND ALSO DR. MENG. <Dawna Ballard - Last Filed: 09/26/19 23:00> - CENTRAL LINE Central Line Lumen: triple Central Line Procedure Prep: Hand Hygeine Performed, Kit Utilized, Sterile Body Drape Placed Patient Position (To prevent Air Embolism): Trendelenburg (SC/IJ) Central Line Position: internal jugular (R) Ultrasound Guided?: Yes Hat, mask, sterile gown, & sterile gloves worn by physician?: Yes Site scrubbed vigorously for 30 seconds? (Groin: 2 min): Yes Anesthetic: 1%, Lidocaine/Xylocaine Volume of Anesthetic (ml's): 5 Post Procedure: Sutured in place, Sterile field maintained, Sterile dressing applied, Blood aspirated from each lumen, Placement verfied by XRAY Complications: none - ADDITIONAL PROCEDURES Additional Procedure: OTHER (Central line pt found to have pulled his central line partially out, 5cm remained in IJ. site sterile prepped, sterile drapes applied, sterile gown gloves and mask worn, after aspirating exisiting central line to ensure patency J line was introduced into exisiting line, old line removed and new line placed over j wire, good aspiration of blood noted, sutured new line in place. sterile dressing applied) Consent Form Signed if Applicable?: No (AMS) Time-Out Verification Completed?: Yes Site Prep: Kit Utilized, Sterile Drapes Applied <Ion Meng - Last Filed: 09/27/19 02:16> Departure <Dawna Ballard - Last Filed: 09/26/19 23:00> - Departure Date of Disposition Decision: 09/27/19 Time of Disposition Decision: 02:14 Certified Medical Emergency: Emergent - Critical Care Note This patient required my direct & personal management of CC.: Yes Total Time (mins): 40 Critical Care Statement: This patient required my direct personal management to treat or rule out processes, the absence of which, could potentiallly result in sudden, clinically significant life or limb threatening deterioration. <Ion Meng - Last Filed: 09/27/19 02:16> - Departure DIAGNOSIS: Diabetic ketoacidosis Qualifiers: Diabetes mellitus type: type 2 Diabetes mellitus complication detail: with coma Qualified Code(s): E11.11 - Type 2 diabetes mellitus with ketoacidosis with coma Hypotension Qualifiers: Hypotension type: other hypotension type Qualified Code(s): I95.89 - Other hypotension Hypothermia Qualifiers: Encounter type: initial encounter Qualified Code(s): T68.XXXA - Hypothermia, initial encounter Disposition: ADMITTED INPATIENT 09 Condition: Fair Referrals and Follow-Ups: None,PCP [Primary Care Provider] - Attestation - Physician/ YOSI Attestation Patient care was provided by Advanced Practice Provider:: No The physician spent face to face time with patient:: Yes Advanced Practice Provider documentation review:: Supervising physician onsite and consulted in the evaluation and care of this patient. The physician did have a face to face encounter with the patient. <Ion Meng - Last Filed: 09/27/19 02:16> Glascow Coma Score - Glascow Coma Score Best Eye Response ([place]): (3) open to voice Best Verbal Response ([place]): (1) no verbal response Best Motor Response ([place]): (6) obeys commands (slowly, with difficulty) Thad Total: 10 <Ion Meng - Last Filed: 09/27/19 02:16> This chart was documented by the indicated scribe, (Nandini Lynch Scribnanci) and accurately reflects the services I performed and decisions made by me, Ion Meng MD, as attested by the provider's signature.
[2019-09-27 02:17] LABS: AGAP 34; TCO2 5 mmol/L (25-35)
[2019-09-27] MEDS ORDERED: ZOFRAN PO PRN ×2 (04:15→05:56)
[2019-09-27] MEDS ORDERED: TYLENOL PO PRN (04:15)
[2019-09-27] MEDS ORDERED: MAGNESIUM SULFATE 2 GM/S.W.I. 2 GM/50 ML IVPB IV PRN ×2 (04:15→05:56)
[2019-09-27] MEDS ORDERED: ZOFRAN IV PRN (04:15)
[2019-09-27] MEDS ORDERED: NS 1,000 ML IV SCH (04:15)
[2019-09-27] MEDS ORDERED: POTASSIUM CHLORIDE 20 MEQ/SWI 20 MEQ/100 ML IVPB IV PRN (04:15)
[2019-09-27] MEDS ORDERED: POTASSIUM CHLORIDE 20% LIQUID PO PRN ×2 (04:15→05:56)
[2019-09-27] MEDS ORDERED: SODIUM PHOSPHATE 30 MMOL in D5W 250 ML IV PRN ×2 (04:15→05:56)
[2019-09-27] MEDS ORDERED: D50W SYRINGE IV PRN ×2 (04:15→05:56)
[2019-09-27] MEDS ORDERED: TYLENOL PR PRN ×2 (04:15→05:56)
[2019-09-27] MEDS ORDERED: SODIUM BICARBONATE 8.4% 100 MEQ in STERILE WATER INJ. 500 ML IV PRN (04:15)
[2019-09-27] MEDS ORDERED: D5 NS 1,000 ML IV SCH (04:15)
[2019-09-27] MEDS ORDERED: POTASSIUM CHLORIDE 40 MEQ/SWI 40 MEQ/100 ML IVPB IV PRN ×2 (04:15→05:56)
[2019-09-27] MEDS ORDERED: POTASSIUM CHLORIDE 10% LIQUID PO PRN (04:15)
[2019-09-27] MEDS: NS 1,000 ML IV SCH ×6 (04:39→18:30)
[2019-09-27] MEDS ORDERED: HUMULIN R IV ONE (05:56)
[2019-09-27] MEDS ORDERED: D5 NS 1,000 ML IV PRN ×2 (05:56→16:48)
[2019-09-27 06:18] LABS: ALLEN TEST YES; BE -16.8 mmoll (-3.0-3.0); BLOOD TYPE ARTERIAL; HCO3-(ACT) 11.7 mmoll (20.0-26.0); METHB 1.2 % (0.0-1.5); O2HB 95.8 % (95.0-99.0); PCO2(98.6) 23 mmHg (35-45); PO2(98.6) 98 mmHg (60-100); SAMPLE BLOOD; SAO2 98.1 % (95.0-100.0); THB 17.8 g/dL (11.5-17.4)
[2019-09-27 06:19] LABS: MODALITY ROOM AIR
--- NOTE | 2019-09-27 07:02 | Diag Imaging Result Doc PS360 ---
EXAM: CT HEAD W/O CONTRAST 09/26/2019 HISTORY: AMS, POORLY RESPONSIVE TECHNIQUE: This exam was performed using automated exposure control, adjustment of mA or kV according to patient size, and/or use of iterative reconstruction technique. COMMENT: There is no evidence of mass effect, bleed, or abnormal extra-axial fluid collection. There are calcifications in the falx and tentorium. There is some mucosal thickening in the visualized portion of the left maxillary sinus and some of the ethmoid air cells on the left. The calvarium is intact. Compared to the previous study of 02/12/2019, there has been no appreciable change in the appearance of the brain. IMPRESSION: Left maxillary and ethmoid sinusitis. No evidence of acute intracranial disease. Electronically signed by Pedro Villarreal 09/27/2019 7:00 AM
--- NOTE | 2019-09-27 07:21 | Diag Imaging Result Doc PS360 ---
EXAM: CHEST-PORTABLE INDICATION: AMS TECHNIQUE: One view COMPARISON: 02/11/2019 FINDINGS: A right IJ line is in place. The tip projects over the region of the atriocaval junction in the expected position. The lungs are grossly clear. There is no discrete pleural fluid collection or pneumothorax. The cardiomediastinal silhouette and central vasculature are grossly unremarkable. IMPRESSION: No evidence of acute pathology by plain radiograph. Electronically signed by Dionisio Raza 09/27/2019 7:18 AM
[2019-09-27 07:35] LABS: ALLEN TEST YES; BLOOD TYPE ARTERIAL; HCO3-(ACT) 13.2 mmoll (20.0-26.0); METHB 1.3 % (0.0-1.5); O2HB 95.8 % (95.0-99.0); PCO2(98.6) 25 mmHg (35-45); PO2(98.6) 96 mmHg (60-100); SAMPLE BLOOD; SAO2 98.1 % (95.0-100.0); THB 17.8 g/dL (11.5-17.4); pH(98.6) 7.23 (7.35-7.45)
[2019-09-27 07:36] LABS: MODALITY ROOM AIR
--- NOTE | 2019-09-27 07:38 | Diag Imaging Result Doc PS360 ---
EXAM: CHEST-PORTABLE 09/27/2019 HISTORY: LINE PLACEMENT TECHNIQUE: AP portable at 0102 COMMENT: There is a right internal jugular central venous catheter with its tip in the area of the superior vena cava. There is no evidence of pneumothorax. The lungs appear to be clear and unchanged since 09/26/2019. IMPRESSION: No evidence of acute disease. Electronically signed by Pedro Villarreal 09/27/2019 7:36 AM
--- NOTE | 2019-09-27 08:07 | HISTORY AND PHYSICAL ---
PRIMARY CARE PHYSICIAN: None. CHIEF COMPLAINT: Unresponsive. HISTORY OF PRESENTING ILLNESS: A 58-year-old male with a history of diabetes mellitus type 2, who apparently was found at his home by his sister unresponsive. The patient apparently was lying on the floor. He was brought to the emergency department. He was minimally responsive and was mostly mumbling. He was evaluated in the ED. He was found to be in DKA with blood glucose of over 1000. He was started on an insulin drip. He was also hypotensive and was started on pressor, and IV fluids. Due to his presenting symptoms, he will require ICU admission for further management. The patient is a poor historian due to his present condition. Most of the history is obtained from previous medical records. PAST MEDICAL HISTORY: Includes diabetes mellitus type 2. PAST SURGICAL HISTORY: None. ALLERGIES: No known drug allergies. CURRENT MEDICATIONS: Unknown. SOCIAL HISTORY: No history of smoking, alcohol or illicit drug use. FAMILY HISTORY: No history of coronary disease. REVIEW OF SYSTEMS: Unable to obtain. PHYSICAL EXAMINATION: GENERAL: The patient is resting comfortably, but he is moderately altered and is mumbling. VITAL SIGNS: Temperature 94.1 degrees, pulse 115, respirations, 33, and blood pressure 89/55. HEENT: Atraumatic, normocephalic. PERRLA. NECK: No masses. CHEST: Rhonchi. CARDIOVASCULAR: Regular rate and rhythm. ABDOMEN: Soft. Positive bowel sounds. EXTREMITIES: Trace edema. NEUROLOGIC: He is awake and arousable. GENITOURINARY: No bladder distention. SKIN: Warm. LABORATORIES AND STUDIES: WBC 12.31, hemoglobin 16.8, hematocrit 52.5, and platelets 278,000. Blood gases show a pH of 6.90, pCO2 of 13. Sodium 134, potassium 4.1, chloride 95, CO2 is 5, BUN is 75, creatinine is 4.4, and glucose is 1053. UA shows ketones. Toxicology shows acetone. Head CT was unremarkable as per ED physician. ASSESSMENT: This is a 58-year-old male with a history of diabetes mellitus type 2, who apparently was found unresponsive on the floor by his sister who is brought to the emergency department. He is found to be in DKA. Subsequently, he will require ICU admission for further management. 1. DKA. 2. Altered mental status secondary to #1. 3. Acute kidney injury. 4. Hypothermia. PLAN: 1. We will admit patient to ICU. 2. The patient was started on insulin drip per DKA protocol. 3. Continue with neuro checks. 4. Continue with IV fluid hydration. 5. Continue with Crystal Hugger to increase his core temperature. 6. We will use pressors for blood pressure support. 7. Put patient on DVT prophylaxis with SCD's. 8. The patient's condition is guarded. We will continue to follow and reassess. Make further recommendations based on patient's clinical course. cc: Antonio Neal MD MTDD
[2019-09-27 08:10] LABS: INR 1.29; PROTIME 16.3 Seconds (11.0-16.0)
[2019-09-27 08:11] LABS: PTT 23.8 Seconds (22.3-41.8)
[2019-09-27 08:13] LABS: HEMATOCRIT 51.5 % (42.0-52.0); HEMOGLOBIN 17.9 g/dL (14.0-18.0); MCH 28.6 PG (27-31); MCHC 34.8 g/dL (33-37); MCV 82.4 FL (81-99); MPV 11.9 FL (7.4-10.4); RBC 6.25 XMIL (4.7-6.1); RDW 13.4 % (11.5-14.5); WBC 13.59 X1000 (4.8-10.8)
[2019-09-27 08:19] LABS: CALCIUM 8.8 mg/dL (8.8-10.2); CREATININE 3.9 mg/dL (0.7-1.2); MAGNESIUM 2.9 mg/dL (1.5-2.7); PHOSPHORUS 0.8 mg/dL (2.7-4.5); POTASSIUM 3.9 mmol/L (3.5-5.1)
[2019-09-27] MEDS: POTASSIUM CHLORIDE 20 MEQ/SWI 20 MEQ/100 ML IVPB IV PRN ×4 (08:29→21:04)
[2019-09-27] MEDS ORDERED: SODIUM PHOSPHATE 40 MMOL in NS 250 ML IV ONE (08:38)
[2019-09-27] MEDS: HUMULIN R 100 UNIT in NS 100 ML IV SCH (08:57)
[2019-09-27 13:15] LABS: CALCIUM 9.6 mg/dL (8.8-10.2); CREATININE 3.1 mg/dL (0.7-1.2); MAGNESIUM 3.1 mg/dL (1.5-2.7); POTASSIUM 3.6 mmol/L (3.5-5.1)
[2019-09-27 15:59] LABS: CREATININE 2.6 mg/dL (0.7-1.2); MAGNESIUM 2.8 mg/dL (1.5-2.7); PHOSPHORUS 3.3 mg/dL (2.7-4.5)
[2019-09-27 17:33] LABS: ALLEN TEST YES; BE -11.4 mmoll (-3.0-3.0); BLOOD TYPE ARTERIAL; METHB 1.1 % (0.0-1.5); O2(CT) 22.8 mL/dL (15.0-23.0); O2HB 95.7 % (95.0-99.0); PCO2(98.6) 23 mmHg (35-45); PO2(98.6) 86 mmHg (60-100); SAMPLE BLOOD; SAO2 97.8 % (95.0-100.0); THB 16.9 g/dL (11.5-17.4); pH(98.6) 7.33 (7.35-7.45)
[2019-09-27 17:34] LABS: MODALITY ROOM AIR
[2019-09-27 20:12] LABS: CALCIUM 9.1 mg/dL (8.8-10.2); CREATININE 2.3 mg/dL (0.7-1.2); MAGNESIUM 2.7 mg/dL (1.5-2.7); PHOSPHORUS 1.7 mg/dL (2.7-4.5); POTASSIUM 4.2 mmol/L (3.5-5.1)
[2019-09-27 23:38] LABS: CREATININE 2.1 mg/dL (0.7-1.2); MAGNESIUM 2.9 mg/dL (1.5-2.7); PHOSPHORUS 1.9 mg/dL (2.7-4.5); POTASSIUM 4.3 mmol/L (3.5-5.1)
[2019-09-28] MEDS: HUMULIN R 100 UNIT in NS 100 ML IV SCH ×2 (00:16→16:11)
[2019-09-28] MEDS: POTASSIUM CHLORIDE 20 MEQ/SWI 20 MEQ/100 ML IVPB IV PRN ×2 (00:22→04:39)
[2019-09-28] MEDS: NS 1,000 ML IV SCH ×4 (02:11→23:15)
[2019-09-28 03:48] LABS: HEMATOCRIT 43.8 % (42.0-52.0); HEMOGLOBIN 15.5 g/dL (14.0-18.0); MCHC 35.4 g/dL (33-37); MPV 11.9 FL (7.4-10.4); RBC 5.34 XMIL (4.7-6.1); RDW 13.6 % (11.5-14.5); WBC 11.11 X1000 (4.8-10.8)
[2019-09-28 04:10] LABS: CALCIUM 9.3 mg/dL (8.8-10.2); CREATININE 1.9 mg/dL (0.7-1.2); MAGNESIUM 2.8 mg/dL (1.5-2.7); PHOSPHORUS 2.1 mg/dL (2.7-4.5); POTASSIUM 4.3 mmol/L (3.5-5.1)
[2019-09-28] MEDS: D5W 1,000 ML IV SCH ×2 (07:54→18:19)
[2019-09-28 08:02] LABS: CREATININE 1.7 mg/dL (0.7-1.2); MAGNESIUM 2.8 mg/dL (1.5-2.7); POTASSIUM 4.4 mmol/L (3.5-5.1)
[2019-09-28] MEDS: POTASSIUM CHLORIDE 10% LIQUID PO PRN ×4 (08:16→21:42)
[2019-09-28 08:35] LABS: ALLEN TEST YES; BE -7.9 mmoll (-3.0-3.0); BLOOD TYPE ARTERIAL; HCO3-(ACT) 18.7 mmoll (20.0-26.0); METHB 0.8 % (0.0-1.5); O2(CT) 20.7 mL/dL (15.0-23.0); O2HB 95.9 % (95.0-99.0); PCO2(98.6) 27 mmHg (35-45); PO2(98.6) 84 mmHg (60-100); SAMPLE BLOOD; SAO2 98.1 % (95.0-100.0); THB 15.3 g/dL (11.5-17.4); pH(98.6) 7.37 (7.35-7.45)
[2019-09-28 08:36] LABS: MODALITY ROOM AIR
--- NOTE | 2019-09-28 09:55 | Diag Imaging Result Doc PS360 ---
EXAM: CT ABDOMEN/PELVIS W/O CONTRAST 09/28/2019 HISTORY: lipase elevated, abdominal distension. TECHNIQUE: This exam was performed using automated exposure control, adjustment of mA or kV according to patient size, and/or use of iterative reconstruction technique. COMMENT: There is no evidence of acute disease in the visualized portion of the chest. There are no previous studies. There are no apparent gallstones. There is no evidence of nephrolithiasis or hydronephrosis. There is no evidence of peripancreatic inflammation. There is no evidence of bowel obstruction. The appendix is normal in appearance. There is a fairly large amount of stool in the rectosigmoid colon. There are some diverticula in the sigmoid without evidence of diverticulitis. There is a Vogel catheter in the bladder. There is no evidence of acute bony abnormality. There are some degenerative changes in the lumbar spine. IMPRESSION: Constipation. No evidence of pancreatitis on this noncontrast study. No evidence of stones or obstruction. Electronically signed by Pedro Villarreal 09/28/2019 9:53 AM
[2019-09-28 10:18] LABS: HEMOGLOBIN A1C 10.4 % (4.8-6.0)
[2019-09-28 10:37] LABS: CHOLESTEROL 105 mg/dL (0-200); HDL 34 mg/dL (35-55); LDL 37 mg/dL; TRIGLYCERIDES 169 mg/dL (39-160); VLDL 34 mg/dL
--- NOTE | 2019-09-28 11:20 | PROGRESS NOTE ---
DATE: 09/28/2019 SUBJECTIVE: Patient is more awake today. He reports he wants to try some food and some liquids. OBJECTIVE: Vital Signs: Temperature 98.1 degrees, heart rate 113, respiratory rate 24, blood pressure 97/65 and O2 saturation 99% on room air. General: This is a chronically ill-appearing, 58-year-old male lying in bed in no acute distress. Cardiovascular: S1, S2 heard. No murmurs, gallops, or rubs. Regular rate and rhythm. Respiratory: Clear bilaterally to auscultation. No work of breathing or using accessory muscles. Abdomen: Soft. Nontender to palpation. Bowel sounds present. No organomegaly. Extremities: No clubbing, cyanosis, or edema. Peripheral pulses present in both legs. Neurological: Patient is alert and oriented x3. Moves 4 extremities. LABORATORY DATA: The white cell count is 11.11. Normal hemoglobin with sodium 159, potassium 4.4, bicarbonate 16, anion gap 13 and creatinine 1.7. ASSESSMENT/PLAN: 1. Diabetic ketoacidosis. That is the reason why this patient was admitted to the hospital. So at this point, we will continue with insulin drip because sodium is 159. I am going to switch to D5W, and keep checking BMP every 4 hours. I have noted that the amylase and lipase has been ordered and is very elevated. At this point, I am going to repeat the lipase to rule out any laboratory error. We will do a CT of the abdomen and pelvis to rule out pancreatitis. 2. Acute kidney injury. The patient continues to be on IV fluids and, his creatinine continues to improve. 3. Hypokalemia resolved. 4. Metabolic encephalopathy secondary to condition #1. Improved. We will continue to monitor. Patient wants to eat something, not complaining of abdominal pain. No nausea. We will start diabetic diet. cc: Gurinder Gaona MD [facility]
[2019-09-28 12:21] LABS: CALCIUM 9.2 mg/dL (8.8-10.2); CREATININE 1.5 mg/dL (0.7-1.2); MAGNESIUM 2.9 mg/dL (1.5-2.7); PHOSPHORUS 1.9 mg/dL (2.7-4.5)
[2019-09-28 15:23] LABS: ESTIMATED GFR > 60
[2019-09-28 15:31] LABS: AGAP 13; BUN 30 mg/dL (8-22); CALCIUM 8.9 mg/dL (8.8-10.2); CHLORIDE 121 mmol/L (98-107); COSMO 316; CREATININE 1.3 mg/dL (0.7-1.2); GLUCOSE 316 mg/dL (70-104); MAGNESIUM 2.6 mg/dL (1.5-2.7); PHOSPHORUS 2.5 mg/dL (2.7-4.5); POTASSIUM 4.1 mmol/L (3.5-5.1); SODIUM 150 mmol/L (136-145); TCO2 16 mmol/L (25-35)
[2019-09-28 19:24] LABS: ESTIMATED GFR > 60
[2019-09-28 19:26] LABS: AGAP 12; BUN 26 mg/dL (8-22); CHLORIDE 121 mmol/L (98-107); COSMO 311; CREATININE 1.3 mg/dL (0.7-1.2); GLUCOSE 221 mg/dL (70-104); MAGNESIUM 2.6 mg/dL (1.5-2.7); PHOSPHORUS 1.9 mg/dL (2.7-4.5); POTASSIUM 3.8 mmol/L (3.5-5.1); SODIUM 151 mmol/L (136-145); TCO2 18 mmol/L (25-35)
[2019-09-28 23:41] LABS: ESTIMATED GFR > 60
[2019-09-28 23:44] LABS: AGAP 12; BUN 23 mg/dL (8-22); CHLORIDE 121 mmol/L (98-107); COSMO 313; CREATININE 1.3 mg/dL (0.7-1.2); GLUCOSE 237 mg/dL (70-104); MAGNESIUM 2.5 mg/dL (1.5-2.7); PHOSPHORUS 2.8 mg/dL (2.7-4.5); POTASSIUM 4.1 mmol/L (3.5-5.1); SODIUM 152 mmol/L (136-145); TCO2 19 mmol/L (25-35)
[2019-09-29] MEDS: POTASSIUM CHLORIDE 10% LIQUID PO PRN (01:19)
[2019-09-29] MEDS: D5W 1,000 ML IV SCH (04:32)
[2019-09-29] MEDS: HUMULIN R 100 UNIT in NS 100 ML IV SCH (04:33)
[2019-09-29] MEDS: NS 1,000 ML IV SCH ×3 (04:38→21:12)
[2019-09-29 04:47] LABS: HEMATOCRIT 39.9 % (42.0-52.0); MCH 29.2 PG (27-31); MCHC 35.1 g/dL (33-37); MCV 83.3 FL (81-99); MPV 11.7 FL (7.4-10.4); RBC 4.79 XMIL (4.7-6.1); RDW 14.2 % (11.5-14.5); WBC 8.2 X1000 (4.8-10.8)
[2019-09-29 05:18] LABS: AGAP 11; BUN 19 mg/dL (8-22); CALCIUM 8.5 mg/dL (8.8-10.2); CHLORIDE 119 mmol/L (98-107); COSMO 301; CREATININE 1.2 mg/dL (0.7-1.2); ESTIMATED GFR > 60; GLUCOSE 172 mg/dL (70-104); POTASSIUM 3.7 mmol/L (3.5-5.1); SODIUM 148 mmol/L (136-145); TCO2 18 mmol/L (25-35)
[2019-09-29 05:34] LABS: MAGNESIUM 2.4 mg/dL (1.5-2.7); PHOSPHORUS 2.6 mg/dL (2.7-4.5)
[2019-09-29] MEDS ORDERED: NS 1,000 ML IV SCH (05:45)
[2019-09-29] MEDS ORDERED: HUMALOG SUBQ SCH (05:45)
[2019-09-29] MEDS ORDERED: NS 500 ML IV ONE (05:46)
[2019-09-29 08:19] LABS: AGAP 14; BUN 19 mg/dL (8-22); CALCIUM 8.7 mg/dL (8.8-10.2); CHLORIDE 116 mmol/L (98-107); COSMO 297; CREATININE 1.1 mg/dL (0.7-1.2); ESTIMATED GFR > 60; GLUCOSE 167 mg/dL (70-104); POTASSIUM 3.6 mmol/L (3.5-5.1); SODIUM 146 mmol/L (136-145); TCO2 16 mmol/L (25-35)
[2019-09-29] MEDS: HUMULIN 70/30 SUBQ SCH ×2 (09:09→20:35)
[2019-09-29] MEDS: HUMALOG SUBQ SCH ×3 (11:54→20:35)
--- NOTE | 2019-09-29 13:51 | PROGRESS NOTE ---
DATE: 09/29/2019 SUBJECTIVE: Patient is more awake today. No acute issues noted as per nursing staff overnight. OBJECTIVE: Vital Signs: Temperature 98.1 degrees, heart rate 102, respiratory rate 17, blood pressure 114/70, O2 saturation 96% on room air. General examination: This is a chronically ill- appearing, 58-year-old male, lying in bed, in no acute distress. Cardiovascular: S1, S2 heard. No murmurs, gallops, or rubs. Regular rate and rhythm. Respiratory: Clear bilaterally to auscultation. No work of breathing. Not using accessory muscles. Abdomen: Soft, nontender to palpation. Bowel sounds present. No organomegaly. Extremities: No clubbing, cyanosis, or edema. Peripheral pulses present in both legs. Neurological: Patient a little this level but moves 4 extremities spontaneously. Answered basic questions appropriately. LABORATORY DATA: Last BMP that we have shows sodium 146 with normal creatinine and carbon dioxide is 16. Anion gap 14. ASSESSMENT AND PLAN: 1. Diabetic ketoacidosis. This condition is resolved so we are going to restart his home medications. In this case, insulin 70/30. We will continue with normal saline. At this point we are going to adjust it to 75 mL per hour. We will continue with diabetic diet and if his blood sugars are better we may discharge this patient tomorrow. 2. Acute kidney injury. Completely resolved. That was secondary to dehydration. 3. Hypokalemia resolved. 4. Metabolic encephalopathy resolved. Patient is at its baseline. 5. Disposition. We will move this patient to [facility] today. cc: Gurinder Gaona MD
[2019-09-29 13:52] LABS: AGAP 13; ALBUMIN 3.1 g/dL (3.5-5.0); BUN 19 mg/dL (8-22); CALCIUM 8.2 mg/dL (8.8-10.2); CHLORIDE 111 mmol/L (98-107); COSMO 298; ESTIMATED GFR > 60; GLUCOSE 318 mg/dL (70-104); PHOSPHORUS 2.2 mg/dL (2.7-4.5); SODIUM 142 mmol/L (136-145); TCO2 18 mmol/L (25-35)
[2019-09-29] MEDS ORDERED: INSULIN PEN NEEDLES ONE (20:43)
[2019-09-30 06:23] LABS: HEMATOCRIT 33.4 % (42.0-52.0); HEMOGLOBIN 11.6 g/dL (14.0-18.0); MCHC 34.7 g/dL (33-37); MCV 86.3 FL (81-99); RBC 3.87 XMIL (4.7-6.1); RDW 13.7 % (11.5-14.5); WBC 8.12 X1000 (4.8-10.8)
[2019-09-30] MEDS: HUMALOG SUBQ SCH ×4 (06:34→22:01)
[2019-09-30 07:06] LABS: AGAP 12; ALBUMIN 2.9 g/dL (3.5-5.0); BUN 14 mg/dL (8-22); CHLORIDE 107 mmol/L (98-107); COSMO 288; CREATININE 0.9 mg/dL (0.7-1.2); ESTIMATED GFR > 60; GLUCOSE 271 mg/dL (70-104); MAGNESIUM 2.1 mg/dL (1.5-2.7); POTASSIUM 3.7 mmol/L (3.5-5.1); SODIUM 139 mmol/L (136-145); TCO2 20 mmol/L (25-35)
[2019-09-30] MEDS ORDERED: CALCIUM GLUCONATE 2 GM in NS 100 ML IV ONE (08:13)
--- NOTE | 2019-09-30 08:37 | PROGRESS NOTE ---
DATE: 09/30/2019 SUBJECTIVE: Patient is a little bit more awake today. He reports feeling weak. No acute issues noted as per nursing staff overnight. OBJECTIVE: Vital Signs: Temperature 98.4 degrees, heart rate 117, respiratory rate 20, blood pressure 135/85,O2 saturation 100% on room air. General: This is a 58-year-old male, lying in bed, in no acute distress. Cardiovascular: S1, S2 heard. No murmurs, gallops, or rubs. Regular rate and rhythm. Respiratory: Clear bilaterally to auscultation. No work of breathing or using accessory muscles. Abdomen: Soft. Nontender to palpation. Bowel sounds present. No organomegaly. Extremities: No clubbing, cyanosis, or edema. Peripheral pulses present in both legs. Neurological: Patient alert and oriented x3. Moves 4 extremities. ASSESSMENT AND PLAN: 1. Diabetic ketoacidosis. That condition is resolved. We will continue with his basal insulin, in this case, Humulin 70/30. We will continue with IV fluids at 75 mL per hour. The patient is on diabetic diet. I think we will send this patient out to the PVC unit today. 2. Acute kidney injury. Completely resolved. 3. Hypokalemia, resolved. 4. Physical deconditioning. Physical therapy has been consulted on working with the patient. 5. Disposition. I think if his numbers are much better tomorrow, we can discharge him, most likely with home health. cc: Gurinder Gaona MD MTDD
[2019-09-30] MEDS: HUMULIN 70/30 SUBQ SCH ×2 (08:49→22:02)
[2019-09-30] MEDS: CALTRATE 600 + D PO SCH ×2 (08:49→22:00)
[2019-09-30 09:58] LABS: CALCIUM 8.3 mg/dL (8.8-10.2)
[2019-09-30] MEDS: NS 1,000 ML IV SCH (12:21)
[2019-09-30] MEDS ORDERED: INSULIN PEN NEEDLES ONE (22:09)
[2019-10-01 07:19] LABS: AGAP 11; ALBUMIN 2.9 g/dL (3.5-5.0); BUN 11 mg/dL (8-22); CHLORIDE 108 mmol/L (98-107); COSMO 287; CREATININE 0.9 mg/dL (0.7-1.2); ESTIMATED GFR > 60; GLUCOSE 182 mg/dL (70-104); MAGNESIUM 2.1 mg/dL (1.5-2.7); POTASSIUM 3.6 mmol/L (3.5-5.1); SODIUM 142 mmol/L (136-145); TCO2 23 mmol/L (25-35)
[2019-10-01] MEDS: HUMALOG SUBQ SCH ×3 (08:03→21:31)
[2019-10-01 08:32] LABS: CALCIUM 8.3 mg/dL (8.8-10.2)
[2019-10-01] MEDS: HUMULIN 70/30 SUBQ SCH ×2 (08:44→21:32)
[2019-10-01] MEDS: CALTRATE 600 + D PO SCH ×2 (08:47→21:32)
[2019-10-01] MEDS ORDERED: HUMULIN 70/30 SUBQ SCH (21:30)
[2019-10-01] MEDS ORDERED: INSULIN PEN NEEDLES ONE (21:39)
[2019-10-02] MEDS: HUMALOG SUBQ SCH ×2 (06:39→11:32)
[2019-10-02 07:10] LABS: AGAP 11; ALBUMIN 3.1 g/dL (3.5-5.0); BUN 8 mg/dL (8-22); CALCIUM 8.4 mg/dL (8.8-10.2); CHLORIDE 106 mmol/L (98-107); COSMO 290; ESTIMATED GFR > 60; GLUCOSE 181 mg/dL (70-104); MAGNESIUM 2.1 mg/dL (1.5-2.7); PHOSPHORUS 3.9 mg/dL (2.7-4.5); POTASSIUM 3.7 mmol/L (3.5-5.1); SODIUM 144 mmol/L (136-145); TCO2 27 mmol/L (25-35)
--- NOTE | 2019-10-02 07:24 | DISCHARGE SUMMARY ---
ADMISSION DATE: 09/27/2019 DISCHARGE DATE: 10/01/2019 DISCHARGE DIAGNOSES: 1. Diabetic ketoacidosis, resolved. 2. Metabolic encephalopathy secondary to condition #1, resolved. 3. Acute kidney injury, resolved. 4. Hypothermia, resolved. PROCEDURES: 1. Chest x-ray done on admission showed no evidence of acute pathology by plain radiograph. 2. Head CT showed maxillary and ethmoid sinusitis, but no evidence of acute intracranial disease. 3. Abdomen and pelvis CT showed constipation, but no evidence of pancreatitis on this noncontrast. No evidence of stones or obstruction. HOSPITAL COURSE: In brief, this is a 58-year-old male with past medical history of diabetes type 2, who was found at home by his sister, jamshid. Brought to the emergency department. He was found out to be in DKA. He was started on insulin drip. He started getting more awake and alert. Then, he was switched to his home medication of NovoLog 70/30, and he was doing fine. He was initially hypotensive and hypothermic, but those problems resolved completely. He was eating okay here in the hospital. We have checked his hemoglobin A1c, which is 10.4, which was pretty much elevated. He was advised to use his insulin as he is supposed to. Now, he is feeling fine, awake and alert, with all of his labs within normal limits, so he is going to be discharged in stable condition. DISCHARGE PHYSICAL EXAMINATION: Vital Signs: Temperature 98.4, heart rate 91, respiratory rate 18, blood pressure 128/82, O2 saturation 99% on room air. General: This is a chronically ill- appearing, 58-year-old, male, lying in bed in no acute distress. Cardiovascular: S1, S2 heard. No murmurs, gallops, or rubs. Regular rate and rhythm. Respiratory: Clear bilaterally to auscultation. No work of breathing or using accessory muscles. Abdomen: Soft, nontender to palpation. Bowel sounds present. No organomegaly. Extremities: No clubbing, cyanosis, or edema. Peripheral pulses present in both legs. Neurological: The patient is alert and oriented x3. Moves all 4 extremities. DISCHARGE DISPOSITION: Home to self-care. LIST OF MEDICATIONS: 1. Metformin as directed. 2. Humulin 70/30, 30 units subcutaneously b.i.d. cc: Gurinder Gaona MD [facility]
[2019-10-02] MEDS ORDERED: PNEUMOVAX 23 IM ONE (08:16)
[2019-10-02] MEDS: CALTRATE 600 + D PO SCH (09:10)
[2019-10-02] MEDS: HUMULIN 70/30 SUBQ SCH (09:11)
[2019-10-02] MEDS: FLU VACCINE IM ONE ×2 (09:18→10:49)
[2019-10-02 16:21] VITALS: BP 125/90
--- NOTE | 2019-10-03 12:43 | DISCHARGE SUMMARY ---
ADMISSION DATE: 09/27/2019 DISCHARGE DATE: 10/02/2019 ADDENDUM: The patient is preparing for discharge. There were some issues with who would be helping him at home, I guess, but in any case, his sister is on her way to get him. Further details per Dr. Pierson's note from yesterday. Medications as described. His sugars are still in the 200 range, so will continue to follow. cc: Ady Bernal MD
== END 2019-10-02 16:25 | disposition home or self-care (01) | DRG 637 ==
LOC: ED 21:28 → ICU 09-27 04:07 → SUATTDRO 09-27 04:07 → ICU 09-27 05:34 → 2N 09-29 08:38 → 4N 09-30 10:00
PROVIDERS: ATTEND Internal Medicine